=== PATIENT | male | born 1955 | race African-American/Black ===

== ENCOUNTER 2021-07-14 17:57 | Inpatient (IN) | payer MEDICARE, OTHER ==
[~2021-07-14] VITALS: Ht 180.3 cm; Wt 111.4 kg
[~2021-07-14 17:57] MED LIST: AMLO-489 PO; ASPI81CH43 PO; ATOR20TA50 PO; CARV25TA55 PO; CLOP75TA28 PO; DOXA4TAB6 PO; ESLI1TAB4 PO; FURO20TA3 PO; HYDR50TA15 PO; INSLANTI SC; INSU100I25 SC; PANT40T PO
[2021-07-14] MEDS ORDERED: SODIUM CHLORIDE 0.9% 500 ML IVB ONE (18:30)
[2021-07-14 20:32] LABS: Basophils # (auto) 0 10 ^3/uL (0-0.2); Basophils % (auto) 0.4 % (0.0-2.0); Eosinophils # (auto) 0 10 ^3/uL (0-0.8); Eosinophils % (auto) 0.6 % (0.0-7.0); Hematocrit 42.6 % (41.0-53.0); Hemoglobin 14.2 g/dL (13.5-17.5); Lymphocytes # (auto) 0.6 10 ^3/uL (0.4-5.4); Lymphocytes % (auto) 8.4 % (10.0-50.0); Mean Corpuscular Hemoglobin 27.1 pg (28.0-32.0); Mean Corpuscular Hgb Conc. 33.4 g/dL (32.0-36.0); Mean Corpuscular Volume 81.3 fL (80.0-100.0); Monocytes # (auto) 0.5 10 ^3/uL (0-1.3); Monocytes % (auto) 7.7 % (0.0-12.0); Neutrophils # (auto) 5.5 10 ^3/uL (1.6-8.6); Neutrophils % (auto) 82.9 % (37.0-80.0); Nucleated Red Blood Cells % 0.1 %; Red Blood Cells 5.24 10^6/uL (4.5-5.90); White Blood Cell 6.6 10^3/uL (4.4-10.8)
[2021-07-14 20:43] LABS: Albumin 2.2 g/dL (3.4-5.0); BUN/Creatinine Ratio 13.9; Calcium 8.9 mg/dL (8.5-10.1); Magnesium 2.2 mg/dL (1.6-2.6); Potassium 4.1 mmol/L (3.5-5.1)
[2021-07-14 20:45] LABS: Bilirubin, Total 0.7 mg/dL (0.2-1.0); Total Protein 7.9 g/dL (6.4-8.2)
[2021-07-14 20:48] LABS: Lactic Acid w/Reflex 2.5 mmol/L (0.4-2.0)
[2021-07-14] MEDS ORDERED: ACETAMINOPHEN 325 MG TAB PO PRN (22:30)
[2021-07-14] MEDS ORDERED: DOCUSATE SOD 100 MG CAP PO PRN (22:30)
[2021-07-14] MEDS ORDERED: DEXTROSE (50%) 50ML SYRG IV PRN (22:30)
[2021-07-14] MEDS ORDERED: MORPHINE SULFATE 4 MG/ML SYR/VIAL IV PRN (22:30)
[2021-07-14] MEDS ORDERED: ONDANSETRON HCL 4 MG/2 ML VIAL IV PRN (22:30)
[2021-07-14] MEDS ORDERED: hydrALAZINE HCL 20 MG/ML VL IV PRN (22:30)
[2021-07-14] MEDS ORDERED: HYDROcodone-ACET 5/325MG TAB PO PRN (22:30)
[2021-07-14] MEDS: SODIUM CHLORIDE 0.9% 1,000 ML IV SCH (23:17)
[2021-07-15] VITALS (7 sets, daily range): BP systolic 118–161; BP diastolic 63–92
[2021-07-15] MEDS ORDERED: MORPHINE SULFATE INJECTION 2 MG/ML SYRG IV PRN (00:15)
[2021-07-15] MEDS ORDERED: NITROGLYCERIN 0.4 MG SL TAB SL PRN (00:15)
[2021-07-15] MEDS: ACCU-CHEK COMFORT CURVE STRIP VI SCH ×5 (06:35→22:12)
[2021-07-15] MEDS: InsuLIN REG 1unit/0.01ml Soln (100units/ml) SC SCH ×5 (06:36→22:00)
[2021-07-15] MEDS: cefTRIAXone 1GM/50ML D5W 50 ML IV SCH ×2 (09:00→11:30)
[2021-07-15] MEDS: FAMOTIDINE (10MG/ML) 2ML VL IV SCH (12:11)
[2021-07-15] MEDS: ZINC SULFATE 220mg CAP or TAB PO SCH (12:12)
[2021-07-15] MEDS: AZITHROMYCIN 500MG/ 250ML 250 ML IV SCH (12:12)
[2021-07-15] MEDS: ASPirin 81 mg TAB PO SCH (12:12)
[2021-07-15] MEDS: ASCORBIC ACID 500 MG TAB PO SCH ×2 (12:14→22:11)
[2021-07-15] MEDS: MULTIPLE VITAMIN TAB PO SCH (12:17)
[2021-07-15] MEDS: amLODIPine BESYLATE 5 MG TAB PO SCH (12:19)
[2021-07-15] MEDS: SODIUM CHLORIDE 0.9% 1,000 ML IV SCH (14:21)
[2021-07-15] MEDS: ATORVASTATIN 20 MG TAB PO SCH (22:11)
[2021-07-15 22:15] LABS: Basophils # (auto) 0 10 ^3/uL (0-0.2); Basophils % (auto) 0.6 % (0.0-2.0); Eosinophils # (auto) 0.1 10 ^3/uL (0-0.8); Eosinophils % (auto) 1.5 % (0.0-7.0); Hematocrit 37.4 % (41.0-53.0); Hemoglobin 12.5 g/dL (13.5-17.5); Lymphocytes # (auto) 0.7 10 ^3/uL (0.4-5.4); Lymphocytes % (auto) 13.5 % (10.0-50.0); Mean Corpuscular Hemoglobin 27.2 pg (28.0-32.0); Mean Corpuscular Hgb Conc. 33.5 g/dL (32.0-36.0); Mean Corpuscular Volume 81.2 fL (80.0-100.0); Monocytes # (auto) 0.6 10 ^3/uL (0-1.3); Monocytes % (auto) 11.7 % (0.0-12.0); Neutrophils % (auto) 72.7 % (37.0-80.0); Nucleated Red Blood Cells % 0.1 %; Red Cell Distribution Width 14.8 % (11.8-14.3); White Blood Cell 5.5 10^3/uL (4.4-10.8)
[2021-07-15 22:23] LABS: Albumin 1.8 g/dL (3.4-5.0); Calcium 8.3 mg/dL (8.5-10.1); Potassium 3.7 mmol/L (3.5-5.1)
[2021-07-15 22:29] LABS: BUN/Creatinine Ratio 18.4; Bilirubin, Total 0.6 mg/dL (0.2-1.0)
[2021-07-16 05:31] VITALS: BP 132/54
[2021-07-16] MEDS: ACCU-CHEK COMFORT CURVE STRIP VI SCH ×4 (06:39→22:24)
[2021-07-16] MEDS: InsuLIN REG 1unit/0.01ml Soln (100units/ml) SC SCH ×4 (06:42→22:30)
[2021-07-16 09:00] VITALS: BP 131/98
[2021-07-16] MEDS: ASPirin 81 mg TAB PO SCH (10:23)
[2021-07-16] MEDS: ZINC SULFATE 220mg CAP or TAB PO SCH (10:23)
[2021-07-16] MEDS: FAMOTIDINE (10MG/ML) 2ML VL IV SCH (10:23)
[2021-07-16] MEDS: MULTIPLE VITAMIN TAB PO SCH (10:24)
[2021-07-16] MEDS: amLODIPine BESYLATE 5 MG TAB PO SCH (10:25)
[2021-07-16] MEDS: ASCORBIC ACID 500 MG TAB PO SCH ×2 (10:25→22:29)
[2021-07-16] MEDS: AZITHROMYCIN 500MG/ 250ML 250 ML IV SCH (10:31)
[2021-07-16] MEDS: SODIUM CHLORIDE 0.9% 1,000 ML IV SCH (10:31)
[2021-07-16 13:00] VITALS: BP 105/69
[2021-07-16 17:00] VITALS: BP 152/74
[2021-07-16 22:00] VITALS: BP 127/76
[2021-07-16] MEDS: ATORVASTATIN 20 MG TAB PO SCH (22:29)
[2021-07-16 22:42] LABS: Basophils # (auto) 0 10 ^3/uL (0-0.2); Eosinophils # (auto) 0.1 10 ^3/uL (0-0.8); Eosinophils % (auto) 2.1 % (0.0-7.0); Hematocrit 36.9 % (41.0-53.0); Hemoglobin 12.4 g/dL (13.5-17.5); Lymphocytes # (auto) 0.8 10 ^3/uL (0.4-5.4); Lymphocytes % (auto) 16.7 % (10.0-50.0); Mean Corpuscular Hemoglobin 27.1 pg (28.0-32.0); Mean Corpuscular Hgb Conc. 33.6 g/dL (32.0-36.0); Mean Corpuscular Volume 80.5 fL (80.0-100.0); Monocytes # (auto) 0.7 10 ^3/uL (0-1.3); Monocytes % (auto) 15.2 % (0.0-12.0); Neutrophils # (auto) 3.1 10 ^3/uL (1.6-8.6); Nucleated Red Blood Cells % 0.1 %; Red Blood Cells 4.58 10^6/uL (4.5-5.90); White Blood Cell 4.8 10^3/uL (4.4-10.8)
[2021-07-16 23:12] LABS: Potassium 3.6 mmol/L (3.5-5.1)
[2021-07-16 23:16] LABS: BUN/Creatinine Ratio 17.2; Calcium 7.9 mg/dL (8.5-10.1)
[2021-07-17] MEDS: SODIUM CHLORIDE 0.9% 1,000 ML IV SCH ×2 (04:52→17:17)
[2021-07-17] MEDS: ACCU-CHEK COMFORT CURVE STRIP VI SCH ×4 (06:13→22:00)
[2021-07-17] MEDS: InsuLIN REG 1unit/0.01ml Soln (100units/ml) SC SCH ×4 (06:14→23:37)
[2021-07-17 06:15] VITALS: BP 141/92
[2021-07-17] MEDS: cefTRIAXone 1GM/50ML D5W 50 ML IV SCH (08:15)
[2021-07-17 09:03] LABS: BUN/Creatinine Ratio 14.5; Potassium 4.4 mmol/L (3.5-5.1)
[2021-07-17] MEDS: ASPirin 81 mg TAB PO SCH (09:27)
[2021-07-17] MEDS: ZINC SULFATE 220mg CAP or TAB PO SCH (09:27)
[2021-07-17] MEDS: ASCORBIC ACID 500 MG TAB PO SCH ×2 (09:27→22:00)
[2021-07-17] MEDS: MULTIPLE VITAMIN TAB PO SCH (09:27)
[2021-07-17] MEDS: FAMOTIDINE (10MG/ML) 2ML VL IV SCH (09:27)
[2021-07-17] MEDS: amLODIPine BESYLATE 5 MG TAB PO SCH (09:28)
[2021-07-17] MEDS: AZITHROMYCIN 500MG/ 250ML 250 ML IV SCH (09:29)
[2021-07-17 12:26] VITALS: BP 154/95
[2021-07-17 12:29] VITALS: BP 130/89
[2021-07-17 17:00] VITALS: BP 153/78
[2021-07-17 20:00] VITALS: BP 139/79
[2021-07-17] MEDS: ATORVASTATIN 20 MG TAB PO SCH (22:00)
[2021-07-18] MEDS: SODIUM CHLORIDE 0.9% 1,000 ML IV SCH (04:00)
[2021-07-18] MEDS: ACCU-CHEK COMFORT CURVE STRIP VI SCH ×4 (05:43→21:18)
[2021-07-18] MEDS: InsuLIN REG 1unit/0.01ml Soln (100units/ml) SC SCH ×4 (07:02→21:16)
[2021-07-18 08:20] VITALS: BP 171/89
[2021-07-18 09:00] VITALS: BP 171/95
[2021-07-18] MEDS: ZINC SULFATE 220mg CAP or TAB PO SCH (09:53)
[2021-07-18] MEDS: ASPirin 81 mg TAB PO SCH (09:53)
[2021-07-18] MEDS: MULTIPLE VITAMIN TAB PO SCH (09:53)
[2021-07-18] MEDS: cefTRIAXone 1GM/50ML D5W 50 ML IV SCH (09:53)
[2021-07-18] MEDS: ASCORBIC ACID 500 MG TAB PO SCH ×2 (09:54→21:18)
[2021-07-18] MEDS: amLODIPine BESYLATE 5 MG TAB PO SCH (09:54)
[2021-07-18 10:17] LABS: Calcium 8.2 mg/dL (8.5-10.1); Potassium 4.2 mmol/L (3.5-5.1)
[2021-07-18 10:21] LABS: BUN/Creatinine Ratio 11.3
[2021-07-18] MEDS: AZITHROMYCIN 500MG/ 250ML 250 ML IV SCH (10:30)
[2021-07-18 13:00] VITALS: BP 151/90
[2021-07-18 17:41] VITALS: BP 138/81
[2021-07-18] MEDS: ATORVASTATIN 20 MG TAB PO SCH (21:18)
[2021-07-18 21:27] VITALS: BP 155/89
[2021-07-18 22:15] VITALS: BP 155/89
== END 2021-07-18 22:30 | DRG 70 ==
LOC: EDBD 17:57 → ER 17:57 → WEST WING 07-15 00:04
PROVIDERS: ADMIT Nurse Practitioner Family; ATTEND Internal Medicine Geriatric Medicine
DX: G93.41 Metabolic encephalopathy (principal); J18.9 Pneumonia, unspecified organism; N17.9 Acute kidney failure, unspecified; I50.42 Chronic combined systolic (congestive) and diastolic (congestive) heart failure; I13.0 Hypertensive heart and chronic kidney disease with heart failure and stage 1 through stage 4 chronic kidney disease, or unspecified chronic kidney disease; E88.09 Other disorders of plasma-protein metabolism, not elsewhere classified; E11.65 Type 2 diabetes mellitus with hyperglycemia; N18.9 Chronic kidney disease, unspecified; I25.10 Atherosclerotic heart disease of native coronary artery without angina pectoris; Z86.73 Personal history of transient ischemic attack (TIA), and cerebral infarction without residual deficits; E78.5 Hyperlipidemia, unspecified; F17.210 Nicotine dependence, cigarettes, uncomplicated; Z20.822 Contact with and (suspected) exposure to COVID-19; G40.909 Epilepsy, unspecified, not intractable, without status epilepticus; Z59.00 Homelessness unspecified; Z83.3 Family history of diabetes mellitus; Z79.82 Long term (current) use of aspirin; Z79.899 Other long term (current) drug therapy; Z90.49 Acquired absence of other specified parts of digestive tract
CPT/HCPCS: 36415; 70450; 71045; 80048; 80053; 80061; 80320; 82962; 83036; 83605; 83735; 85025; 87040; 87081; 87426; 93306; 93886; 96361; 96374; 97110; 97116; 97163; 97530; G0378; J0696; J1815; J3490

== ENCOUNTER 2023-10-10 14:14 | Inpatient (IN) | payer BC ==
[~2023-10-10] VITALS: Ht 190.5 cm; Wt 114.8 kg
[~2023-10-10 14:14] MED LIST changes: -AMLO-489 PO; +AMLO1TAB22 PO; -DOXA4TAB6 PO; +DOXA4TAB83 PO; +HYDR-4297 PO; -HYDR50TA15 PO
[2023-10-10] MEDS: SODIUM CHLORIDE 0.9% 1,000 ML IV ONE (15:30)
[2023-10-10 19:42] LABS: Basophils # (auto) 0.1 10 ^3/uL (0-0.2); Basophils % (auto) 0.9 % (0.0-2.0); Eosinophils # (auto) 0.4 10 ^3/uL (0-0.8); Eosinophils % (auto) 4.5 % (0.0-7.0); Hematocrit 39.6 % (41.0-53.0); Hemoglobin 12.9 g/dL (13.5-17.5); Lymphocytes % (auto) 25.3 % (10.0-50.0); Mean Corpuscular Hemoglobin 26.8 pg (28.0-32.0); Mean Corpuscular Hgb Conc. 32.6 g/dL (32.0-36.0); Mean Corpuscular Volume 82.1 fL (80.0-100.0); Monocytes # (auto) 0.5 10 ^3/uL (0-1.3); Monocytes % (auto) 6.6 % (0.0-12.0); Neutrophils % (auto) 62.7 % (37.0-80.0); Nucleated Red Blood Cells % 0.1 %; Red Blood Cells 4.82 10^6/uL (4.5-5.90); Red Cell Distribution Width 16.2 % (11.8-14.3)
[2023-10-10 19:57] LABS: Alanine Aminotransferase 31 U/L (7-40); Albumin 4.5 g/dL (3.2-4.8); Alkaline Phosphatase 125 U/L (46-116); Anion Gap 11 (5-15); Aspartate Aminotransferase 17 U/L (13-40); BUN/Creatinine Ratio 10.7 (10.0-20.0); Bilirubin, Direct 0.5 mg/dL (<0.3); Blood Urea Nitrogen 22 mg/dL (9-23); Calcium 9.6 mg/dL (8.5-10.1); Carbon Dioxide 19 mmol/L (20-30); Chloride 107 mmol/L (98-107); Glucose 165 mg/dL (74-106); Potassium 3.8 mmol/L (3.5-5.1); Sodium 137 mmol/L (136-145)
[2023-10-10 19:58] LABS: Bilirubin, Total 1.2 mg/dL (0.2-1.0); Total Protein 7.7 g/dL (5.7-8.2)
[2023-10-10 20:12] LABS: Lipase 34 U/L (12-53); Magnesium 1.7 mg/dL (1.6-2.6)
[2023-10-10] MEDS ORDERED: ONDANSETRON HCL 4 MG/2 ML VIAL IV PRN (20:15)
[2023-10-10] MEDS: SODIUM CHLORIDE 0.9% 1,000 ML IV SCH (20:15)
[2023-10-10] MEDS ORDERED: ACETAMINOPHEN 325 MG TAB PO PRN (20:15)
[2023-10-11] VITALS (8 sets, daily range): BP systolic 126–163; BP diastolic 84–96; PULSE 72–80; RESP 16–20; TEMP 97.7–98.9; O2SAT 92–98
[2023-10-11] MEDS: DICYCLOMINE HCL (10MG/ML) 2 ML AMPULE IM ONE (02:58)
[2023-10-11] MEDS: PANTOPRAZOLE 40 MG/10 ML VIAL INJ IV SCH (05:31)
[2023-10-11] MEDS ORDERED: CLOP75TA70 PO (09:59)
[2023-10-11] MEDS ORDERED: FURO40TA4 PO (09:59)
[2023-10-11] MEDS ORDERED: AMLO1TAB23 PO (09:59)
[2023-10-11] MEDS ORDERED: CARV6.2551 PO (10:00)
[2023-10-11] MEDS ORDERED: INSU100I54 SC (10:00)
[2023-10-11] MEDS ORDERED: ACET250T20 PO (10:00)
[2023-10-11] MEDS ORDERED: ATOR-47 PO (10:00)
[2023-10-11] MEDS ORDERED: INSU1INJ19 SC (10:00)
[2023-10-11] MEDS ORDERED: BRIM0.2S17 EACHEYE (10:01)
[2023-10-11] MEDS ORDERED: DORZ1SOL6 EACHEYE (10:01)
[2023-10-11] MEDS ORDERED: DEXTROSE (50%) 50ML SYRG IV PRN (11:45)
[2023-10-11] MEDS: InsuLIN REG 1unit/0.01ml Soln (100units/ml) SC SCH (12:40)
[2023-10-11] MEDS: ACCU-CHEK COMFORT CURVE STRIP VI SCH (12:43)
[2023-10-11] MEDS: CLOPIDOGREL BISULFATE 75 MG TAB PO ONE (13:10)
[2023-10-11] MEDS: ASPirin 81 mg TAB PO ONE (13:10)
[2023-10-11] MEDS: amLODIPine BESYLATE 5 MG TAB PO ONE (13:11)
[2023-10-11] MEDS: FUROSEMIDE 40 MG TAB PO ONE (13:11)
[2023-10-11 15:42] LABS: Urine Bacteria FEW /hpf (None Seen); Urine Blood Negative /uL (Negative); Urine Clarity Clear (Clear); Urine Color Yellow (Yellow); Urine Protein, UAD TRACE (Negative); Urine Specific Gravity 1.014 (1.001-1.035); Urine Urobilinogen Normal (Negative); Urine WBC 1 /hpf (0 - 3); Urine pH 5.5 (5.0-8.0)
[2023-10-11] MEDS ORDERED: InsuLIN REG 1unit/0.01ml Soln (100units/ml) SC SCH (17:00)
[2023-10-11] MEDS ORDERED: CARVEDILOL 3.125 MG TAB PO SCH (22:00)
[2023-10-11] MEDS: acetaZOLAMIDE 250 MG TAB PO SCH (22:16)
[2023-10-11] MEDS: ATORVASTATIN 20 MG TAB PO SCH (22:17)
[2023-10-11] MEDS: CARVEDILOL 3.125 MG TAB PO SCH (22:17)
[2023-10-12] VITALS (9 sets, daily range): BP systolic 119–157; BP diastolic 70–90; PULSE 70–82; RESP 17–22; TEMP 97.6–98.2; O2SAT 97–100
[2023-10-12] MEDS: ASPirin 81 mg TAB PO SCH (09:57)
[2023-10-12] MEDS: amLODIPine BESYLATE 5 MG TAB PO SCH (09:58)
[2023-10-12] MEDS: CLOPIDOGREL BISULFATE 75 MG TAB PO SCH (09:58)
[2023-10-12] MEDS: FUROSEMIDE 40 MG TAB PO SCH (09:59)
[2023-10-12 13:57] LABS: Chloride 113 mmol/L (98-107); Potassium 3.9 mmol/L (3.5-5.1); Sodium 139 mmol/L (136-145)
[2023-10-12 13:58] LABS: Anion Gap 7 (5-15); Calcium 8.9 mg/dL (8.5-10.1); Carbon Dioxide 19 mmol/L (20-30)
[2023-10-12 14:03] LABS: BUN/Creatinine Ratio 11.5 (10.0-20.0); Blood Urea Nitrogen 15 mg/dL (9-23); Glucose 150 mg/dL (74-106)
[2023-10-12] MEDS: INSULIN LANTUS (GLARGINE) 1 /0.01ml (100units/ml) SC SCH (14:08)
[2023-10-13] VITALS (7 sets, daily range): BP systolic 120–149; BP diastolic 57–80; PULSE 66–75; RESP 17–20; TEMP 96.8–98.7; O2SAT 92–98
[2023-10-13 14:41] LABS: Basophils # (auto) 0.1 10 ^3/uL (0-0.2); Eosinophils # (auto) 0.3 10 ^3/uL (0-0.8); Hemoglobin 12.8 g/dL (13.5-17.5); Lymphocytes # (auto) 1.5 10 ^3/uL (0.4-5.4); Monocytes # (auto) 0.4 10 ^3/uL (0-1.3); Nucleated Red Blood Cells % 0.1 %; White Blood Cell 5.6 10^3/uL (4.4-10.8)
[2023-10-13 14:42] LABS: Chloride 111 mmol/L (98-107); Potassium 3.7 mmol/L (3.5-5.1); Sodium 140 mmol/L (136-145)
[2023-10-13 14:43] LABS: Anion Gap 10 (5-15); Basophils % (auto) 1.8 % (0.0-2.0); Calcium 9.1 mg/dL (8.5-10.1); Carbon Dioxide 19 mmol/L (20-30); Eosinophils % (auto) 5.9 % (0.0-7.0); Hematocrit 39.3 % (41.0-53.0); Lymphocytes % (auto) 26.6 % (10.0-50.0); Mean Corpuscular Hemoglobin 27.1 pg (28.0-32.0); Mean Corpuscular Hgb Conc. 32.7 g/dL (32.0-36.0); Mean Corpuscular Volume 82.8 fL (80.0-100.0); Monocytes % (auto) 7.5 % (0.0-12.0); Neutrophils # (auto) 3.3 10 ^3/uL (1.6-8.6); Neutrophils % (auto) 58.2 % (37.0-80.0); Red Blood Cells 4.75 10^6/uL (4.5-5.90); Red Cell Distribution Width 16.6 % (11.8-14.3)
[2023-10-13 14:48] LABS: BUN/Creatinine Ratio 11.9 (10.0-20.0); Blood Urea Nitrogen 16 mg/dL (9-23); Glucose 139 mg/dL (74-106)
[2023-10-14] VITALS (7 sets, daily range): BP systolic 123–146; BP diastolic 56–81; PULSE 64–78; RESP 17–20; TEMP 98–98.6; O2SAT 96–98
[2023-10-15] VITALS (7 sets, daily range): BP systolic 117–129; BP diastolic 65–73; PULSE 63–76; RESP 16–18; TEMP 97.8–98.4; O2SAT 95–100
[2023-10-15] MEDS: SODIUM CHLORIDE 0.9% 1,000 ML IV SCH ×2 (16:02→17:10)
[2023-10-15] MEDS ORDERED: SODIUM CHLORIDE 0.9% 1,000 ML IV SCH (16:15)
[2023-10-16] VITALS (11 sets, daily range): BP systolic 102–151; BP diastolic 43–85; PULSE 62–91; RESP 12–22; TEMP 81–98.3; O2SAT 94–99
[2023-10-16] LABS: Urine Bacteria FEW /hpf (None Seen); Urine Blood Negative /uL (Negative); Urine Clarity Clear (Clear); Urine Color Yellow (Yellow); Urine Mucus FEW (None Seen); Urine Protein, UAD Negative (Negative); Urine Specific Gravity 1.013 (1.001-1.035); Urine Urobilinogen Normal (Negative); Urine WBC <1 /hpf (0 - 3); Urine pH 5.5 (5.0-8.0)
[2023-10-16 05:52] LABS: Basophils # (auto) 0.1 10 ^3/uL (0-0.2); Eosinophils # (auto) 0.4 10 ^3/uL (0-0.8); Monocytes # (auto) 0.6 10 ^3/uL (0-1.3)
[2023-10-16 05:56] LABS: Basophils % (auto) 1.8 % (0.0-2.0); Eosinophils % (auto) 6.5 % (0.0-7.0); Hematocrit 38.5 % (41.0-53.0); Hemoglobin 12.7 g/dL (13.5-17.5); Lymphocytes # (auto) 1.8 10 ^3/uL (0.4-5.4); Lymphocytes % (auto) 30.7 % (10.0-50.0); Mean Corpuscular Hemoglobin 26.8 pg (28.0-32.0); Mean Corpuscular Hgb Conc. 32.9 g/dL (32.0-36.0); Mean Corpuscular Volume 81.6 fL (80.0-100.0); Monocytes % (auto) 9.8 % (0.0-12.0); Neutrophils % (auto) 51.2 % (37.0-80.0); Nucleated Red Blood Cells % 0.1 %; Red Blood Cells 4.72 10^6/uL (4.5-5.90); Red Cell Distribution Width 15.9 % (11.8-14.3); White Blood Cell 5.8 10^3/uL (4.4-10.8)
[2023-10-16 06:03] LABS: Chloride 110 mmol/L (98-107); Potassium 3.3 mmol/L (3.5-5.1); Sodium 140 mmol/L (136-145)
[2023-10-16 06:04] LABS: Anion Gap 10 (5-15); Carbon Dioxide 20 mmol/L (20-30)
[2023-10-16 06:05] LABS: Calcium 9.4 mg/dL (8.5-10.1)
[2023-10-16 06:08] LABS: INR 1.15 (0.9-1.15)
[2023-10-16 06:09] LABS: Glucose 89 mg/dL (74-106)
[2023-10-16 06:10] LABS: BUN/Creatinine Ratio 11.3 (10.0-20.0); Blood Urea Nitrogen 16 mg/dL (9-23)
[2023-10-16] MEDS ORDERED: ACETYLCYSTEINE ORAL for CIN 20%(200MG/ML) 4ML PO ONE (09:15)
[2023-10-16] MEDS: IODIXANOL 320MG/ML 100ML BTL IV ONE ×2 (12:58→13:32)
[2023-10-16] MEDS: LIDOCAINE 2%HCL (LOCAL ANESTH.) INJ 20ML MDV ONE (12:58)
[2023-10-16] MEDS: fentaNYL CITRATE 100 MCG/2 ML VL ONE (13:05)
[2023-10-16] MEDS: SODIUM CHL 0.9% 0 ML ONE (13:05)
[2023-10-16] MEDS: ANGIOMAX 250 MG VIAL IV ONE (13:05)
[2023-10-16] MEDS: VERAPAMIL 2.5MG/ML INJ 2ML VIAL IV ONE (13:05)
[2023-10-16] MEDS: MIDAZOLAM HCL 2MG/2ML 2ml VIAL (1mg/ml) ONE (13:05)
[2023-10-16] MEDS: HEPARIN SODIUM (PORCINE) 5000 UNITS/ML 1ML VIAL ONE ×2 (13:06→14:08)
[2023-10-16] MEDS: HEPARIN 1,000 UNITS/ml 1ML VIAL ONE (13:39)
[2023-10-16] MEDS ORDERED: ACETYLCYSTEINE ORAL for CIN 20%(200MG/ML) 4ML PO SCH (22:00)
[2023-10-17] VITALS (8 sets, daily range): BP systolic 104–132; BP diastolic 61–73; PULSE 65–85; RESP 16–20; TEMP 97.4–98.4; O2SAT 98–100
[2023-10-17] MEDS: ACETYLCYSTEINE ORAL for CIN 20%(200MG/ML) 4ML PO SCH (09:10)
[2023-10-17 09:45] LABS: Basophils # (auto) 0 10 ^3/uL (0-0.2); Eosinophils # (auto) 0.4 10 ^3/uL (0-0.8); Hemoglobin 12.2 g/dL (13.5-17.5); Lymphocytes # (auto) 1.4 10 ^3/uL (0.4-5.4); Monocytes # (auto) 0.6 10 ^3/uL (0-1.3); Neutrophils # (auto) 4.1 10 ^3/uL (1.6-8.6); Nucleated Red Blood Cells % 0.1 %; White Blood Cell 6.5 10^3/uL (4.4-10.8)
[2023-10-17 09:48] LABS: Basophils % (auto) 0.3 % (0.0-2.0); Hematocrit 37.1 % (41.0-53.0); Lymphocytes % (auto) 22.2 % (10.0-50.0); Mean Corpuscular Hemoglobin 26.7 pg (28.0-32.0); Mean Corpuscular Hgb Conc. 32.7 g/dL (32.0-36.0); Mean Corpuscular Volume 81.7 fL (80.0-100.0); Monocytes % (auto) 8.8 % (0.0-12.0); Neutrophils % (auto) 62.7 % (37.0-80.0); Red Blood Cells 4.55 10^6/uL (4.5-5.90); Red Cell Distribution Width 16.2 % (11.8-14.3)
[2023-10-17 09:59] LABS: Chloride 110 mmol/L (98-107); Sodium 138 mmol/L (136-145)
[2023-10-17 10:00] LABS: Anion Gap 8 (5-15); Carbon Dioxide 20 mmol/L (20-30)
[2023-10-17 10:01] LABS: Calcium 9.2 mg/dL (8.5-10.1)
[2023-10-17 10:05] LABS: BUN/Creatinine Ratio 11.3 (10.0-20.0); Blood Urea Nitrogen 16 mg/dL (9-23)
[2023-10-17 10:10] LABS: Glucose 191 mg/dL (74-106)
[2023-10-17] MEDS: MELATONIN 5 MG TAB PO PRN (22:00)
[2023-10-18 05:00] VITALS: BP 118/61; PULSE 72; RESP 17; TEMP 98; O2SAT 100
[2023-10-18 08:00] VITALS: PULSE 64
[2023-10-18 09:00] VITALS: BP 127/68; PULSE 74; RESP 20; TEMP 96.8; O2SAT 92
[2023-10-18 11:02] VITALS: BP 125/65; PULSE 65; TEMP 36
== END 2023-10-18 13:26 | disposition home health service (06) | DRG 280 ==
LOC: ER 14:14 → OVERFLOW 20:19 → CENTRAL 10-11 09:20 → TELE-CENTR 10-14 18:57 → TELE-EAST 10-14 20:31
PROVIDERS: ADMIT Nurse Practitioner Family; ATTEND Internal Medicine
PROC: B2111ZZ Fluoroscopy of Multiple Coronary Arteries using Low Osmolar Contrast (ICD-10-PCS; principal; 2023-10-16)
PROC: 4A023N7 Measurement of Cardiac Sampling and Pressure, Left Heart, Percutaneous Approach (ICD-10-PCS; 2023-10-16)
PROC: 02JA3ZZ Inspection of Heart, Percutaneous Approach (ICD-10-PCS; 2023-10-16)
DX: I21.4 Non-ST elevation (NSTEMI) myocardial infarction (principal); I50.41 Acute combined systolic (congestive) and diastolic (congestive) heart failure; N17.0 Acute kidney failure with tubular necrosis; I13.0 Hypertensive heart and chronic kidney disease with heart failure and stage 1 through stage 4 chronic kidney disease, or unspecified chronic kidney disease; Z59.00 Homelessness unspecified; I69.354 Hemiplegia and hemiparesis following cerebral infarction affecting left non-dominant side; I25.10 Atherosclerotic heart disease of native coronary artery without angina pectoris; E78.5 Hyperlipidemia, unspecified; E86.0 Dehydration; E11.22 Type 2 diabetes mellitus with diabetic chronic kidney disease; E66.9 Obesity, unspecified; G40.909 Epilepsy, unspecified, not intractable, without status epilepticus; K57.30 Diverticulosis of large intestine without perforation or abscess without bleeding; N18.9 Chronic kidney disease, unspecified; K52.9 Noninfective gastroenteritis and colitis, unspecified; N28.1 Cyst of kidney, acquired; Z79.82 Long term (current) use of aspirin; Z79.899 Other long term (current) drug therapy; Z79.4 Long term (current) use of insulin; Z90.49 Acquired absence of other specified parts of digestive tract; Z95.5 Presence of coronary angioplasty implant and graft; Z83.3 Family history of diabetes mellitus; Z68.31 Body mass index [BMI] 31.0-31.9, adult
CPT/HCPCS: 36415; 71045; 74176; 80048; 80076; 81001; 82270; 82962; 83036; 83690; 83735; 84484; 85025; 85048; 85610; 85730; 86850; 86900; 86901; 87045; 87177; 87427; 87493; 93005; 93306; 93458; 97110; 97116; 97163; 97530; 99152; C9113; G0378; J1815; J2250; Q9967

== ENCOUNTER 2024-04-16 17:45 | Inpatient (IN) | payer BC ==
[~2024-04-16] VITALS: Ht 190.5 cm; Wt 113.5 kg
[~2024-04-16 17:45] MED LIST changes: +ACET250T20 PO; -AMLO1TAB22 PO; +AMLO1TAB23 PO; +ATOR-47 PO; -ATOR20TA50 PO; +BRIM0.2S17 EACHEYE; -CARV25TA55 PO; +CARV6.2551 PO; -CLOP75TA28 PO; +CLOP75TA70 PO; +DORZ1SOL6 EACHEYE; +FURO1TAB77 PO; -FURO20TA3 PO; +FURO40TA4 PO; -HYDR-4297 PO; +HYDR50TA47 PO; -INSU100I25 SC; +INSU100I54 SC; +LOPE2TAB99 PO
[2024-04-16 18:10] VITALS: PULSE 82; RESP 20; O2SAT 95
[2024-04-16 19:14] LABS: Basophils # (auto) 0.1 10 ^3/uL (0-0.2); Monocytes # (auto) 0.5 10 ^3/uL (0-1.3)
[2024-04-16 19:17] LABS: Eosinophils # (auto) 0.3 10 ^3/uL (0-0.8); Eosinophils % (auto) 3.3 % (0.0-7.0); Hematocrit 38.5 % (41.0-53.0); Hemoglobin 12.9 g/dL (13.5-17.5); Lymphocytes # (auto) 1.2 10 ^3/uL (0.4-5.4); Lymphocytes % (auto) 16.5 % (10.0-50.0); Mean Corpuscular Hemoglobin 27.3 pg (28.0-32.0); Mean Corpuscular Hgb Conc. 33.5 g/dL (32.0-36.0); Mean Corpuscular Volume 81.4 fL (80.0-100.0); Monocytes % (auto) 6.4 % (0.0-12.0); Neutrophils # (auto) 5.5 10 ^3/uL (1.6-8.6); Neutrophils % (auto) 72.8 % (37.0-80.0); Nucleated Red Blood Cells % 0.1 %; Platelet Count (auto) 222 10^3/uL (140-450); Red Blood Cells 4.74 10^6/uL (4.5-5.90); Red Cell Distribution Width 15.6 % (11.8-14.3); White Blood Cell 7.5 10^3/uL (4.4-10.8)
[2024-04-16] MEDS: AZITHROMYCIN 500MG/ 250ML 250 ML IV ONE (19:30)
[2024-04-16] MEDS: cefTRIAXone 1GM/50ML D5W 50 ML IV ONE (19:30)
[2024-04-16 19:32] LABS: INR 1.15 (0.9-1.15); Partial Thromboplastin Time 30.9 SEC (24.5-34.5); Prothrombin Time 12.1 sec (9.3-11.8)
[2024-04-16 19:39] LABS: Alanine Aminotransferase 20 U/L (7-40); Albumin 3.9 g/dL (3.2-4.8); Alkaline Phosphatase 129 U/L (46-116); Anion Gap 10 (5-15); Aspartate Aminotransferase 14 U/L (13-40); Bilirubin, Total 1.5 mg/dL (0.2-1.0); Blood Urea Nitrogen 24 mg/dL (9-23); Calcium 9.5 mg/dL (8.7-10.4); Carbon Dioxide 18 mmol/L (20-30); Chloride 109 mmol/L (98-107); Glucose 202 mg/dL (74-106); Potassium 4.4 mmol/L (3.5-5.1); Sodium 137 mmol/L (136-145); Total Protein 7.4 g/dL (5.7-8.2)
[2024-04-16] MEDS: ASPirin-EC 81 mg tab PO ONE (20:24)
[2024-04-16 20:36] VITALS: PULSE 84; RESP 19; O2SAT 95
[2024-04-16] MEDS: InsuLIN REG 1unit/0.01ml Soln (100units/ml) IV ONE (20:45)
[2024-04-16 22:18] LABS: Urine Bacteria FEW /hpf (None Seen); Urine Blood Negative /uL (Negative); Urine Clarity Clear (Clear); Urine Color Yellow (Yellow); Urine Mucus FEW (None Seen); Urine Protein, UAD 1+ (Negative); Urine Specific Gravity 1.021 (1.001-1.035); Urine Urobilinogen 3 mg/dL (Negative); Urine WBC 1 /hpf (0 - 3); Urine pH 5.5 (5.0-9.0)
[2024-04-16] MEDS ORDERED: DEXTROSE (50%) 50ML SYRG IV PRN (22:30)
[2024-04-16] MEDS ORDERED: NITROGLYCERIN 0.4 MG SL TAB SL PRN (22:30)
[2024-04-16] MEDS ORDERED: hydrALAZINE HCL 20 MG/ML VL IV PRN (22:30)
[2024-04-16] MEDS ORDERED: ONDANSETRON HCL 4 MG/2 ML VIAL IV PRN (22:30)
[2024-04-16] MEDS ORDERED: MORPHINE SULFATE INJ 2 MG/ml SYRG IV PRN (22:30)
[2024-04-16] MEDS ORDERED: DOCUSATE SOD 100 MG CAP PO PRN (22:30)
[2024-04-17] VITALS (8 sets, daily range): BP systolic 110–155; BP diastolic 64–85; PULSE 67–90; RESP 15–22; TEMP 97.9–98.5; O2SAT 92–98
[2024-04-17] MEDS: SODIUM CHLOR 0.9% PF (SALINE LOCK) 10ML VIAL/SYR IV SCH (06:27)
[2024-04-17] MEDS: ACCU-CHEK COMFORT CURVE STRIP VI SCH (06:27)
[2024-04-17] MEDS: InsuLIN REG 1unit/0.01ml Soln (100units/ml) SC SCH ×2 (06:27→21:28)
[2024-04-17] MEDS: DORZOLAMIDE HCL 2% OPTH(EYE) SOL 10ML EACHEYE SCH (10:00)
[2024-04-17] MEDS: ASPirin 81 mg TAB PO SCH (10:01)
[2024-04-17] MEDS: amLODIPine BESYLATE 5 MG TAB PO SCH (10:02)
[2024-04-17] MEDS: ENOXAPARIN SOD 40 MG/0.4 ML SYRINGE SC SCH (10:03)
[2024-04-17] MEDS: CARVEDILOL 3.125 MG TAB PO SCH (10:03)
[2024-04-17 15:12] LABS: Basophils # (auto) 0.1 10 ^3/uL (0-0.2); Basophils % (auto) 1.7 % (0.0-2.0); Eosinophils # (auto) 0.3 10 ^3/uL (0-0.8); Eosinophils % (auto) 4.6 % (0.0-7.0); Hematocrit 37.4 % (41.0-53.0); Hemoglobin 12.3 g/dL (13.5-17.5); Lymphocytes % (auto) 15.5 % (10.0-50.0); Mean Corpuscular Hemoglobin 27.1 pg (28.0-32.0); Mean Corpuscular Hgb Conc. 32.9 g/dL (32.0-36.0); Mean Corpuscular Volume 82.4 fL (80.0-100.0); Monocytes # (auto) 0.4 10 ^3/uL (0-1.3); Monocytes % (auto) 6.3 % (0.0-12.0); Neutrophils # (auto) 4.6 10 ^3/uL (1.6-8.6); Neutrophils % (auto) 71.9 % (37.0-80.0); Nucleated Red Blood Cells % 0.2 %; Platelet Count (auto) 198 10^3/uL (140-450); Red Blood Cells 4.54 10^6/uL (4.5-5.90); Red Cell Distribution Width 15.8 % (11.8-14.3); White Blood Cell 6.3 10^3/uL (4.4-10.8)
[2024-04-17 15:35] LABS: Alanine Aminotransferase 15 U/L (7-40); Albumin 3.6 g/dL (3.2-4.8); Alkaline Phosphatase 120 U/L (46-116); Anion Gap 6 (5-15); Aspartate Aminotransferase 11 U/L (13-40); BUN/Creatinine Ratio 10.1 (10.0-20.0); Blood Urea Nitrogen 15 mg/dL (9-23); Calcium 9.3 mg/dL (8.7-10.4); Carbon Dioxide 18 mmol/L (20-30); Chloride 111 mmol/L (98-107); Glucose 211 mg/dL (74-106); Magnesium 1.8 mg/dL (1.6-2.6); Potassium 3.8 mmol/L (3.5-5.1); Sodium 135 mmol/L (136-145)
[2024-04-17 15:36] LABS: Bilirubin, Total 1.1 mg/dL (0.2-1.0); Total Protein 7.1 g/dL (5.7-8.2)
[2024-04-17 17:09] LABS: COVID19 ANTIGEN SOFIA FIA NEGATIVE (NEGATIVE); Rapid Influenza A Negative (Negative); Rapid Influenza B Negative (Negative)
[2024-04-17] MEDS: AZITHROMYCIN 500MG/ 250ML 250 ML IV SCH (20:00)
[2024-04-17] MEDS ORDERED: cefTRIAXone 1GM/50ML D5W 50 ML IV SCH (20:00)
[2024-04-17] MEDS: ATORVASTATIN 20 MG TAB PO SCH (21:27)
[2024-04-17] MEDS ORDERED: LOSA-535 PO (22:23)
[2024-04-17] MEDS: cefTRIAXone 1GM/50ML D5W 50 ML IV SCH (23:26)
[2024-04-18] VITALS (7 sets, daily range): BP systolic 115–142; BP diastolic 65–83; PULSE 62–83; RESP 18–20; TEMP 98–98.9; O2SAT 95–97
[2024-04-18 06:43] LABS: Basophils # (auto) 0.1 10 ^3/uL (0-0.2); Basophils % (auto) 0.9 % (0.0-2.0); Eosinophils # (auto) 0.4 10 ^3/uL (0-0.8); Eosinophils % (auto) 5.6 % (0.0-7.0); Hematocrit 36.9 % (41.0-53.0); Hemoglobin 12.4 g/dL (13.5-17.5); Lymphocytes # (auto) 1.8 10 ^3/uL (0.4-5.4); Lymphocytes % (auto) 24.9 % (10.0-50.0); Mean Corpuscular Hemoglobin 27.5 pg (28.0-32.0); Mean Corpuscular Hgb Conc. 33.6 g/dL (32.0-36.0); Mean Corpuscular Volume 81.6 fL (80.0-100.0); Monocytes # (auto) 0.6 10 ^3/uL (0-1.3); Monocytes % (auto) 8.5 % (0.0-12.0); Neutrophils # (auto) 4.3 10 ^3/uL (1.6-8.6); Neutrophils % (auto) 60.1 % (37.0-80.0); Nucleated Red Blood Cells % 0.1 %; Platelet Count (auto) 195 10^3/uL (140-450); Red Blood Cells 4.53 10^6/uL (4.5-5.90); Red Cell Distribution Width 15.5 % (11.8-14.3); White Blood Cell 7.2 10^3/uL (4.4-10.8)
[2024-04-18 07:02] LABS: Alanine Aminotransferase 18 U/L (7-40); Albumin 3.5 g/dL (3.2-4.8); Alkaline Phosphatase 111 U/L (46-116); Anion Gap 9 (5-15); BUN/Creatinine Ratio 13.4 (10.0-20.0); Blood Urea Nitrogen 20 mg/dL (9-23); Calcium 9.3 mg/dL (8.7-10.4); Carbon Dioxide 17 mmol/L (20-30); Chloride 111 mmol/L (98-107); Glucose 94 mg/dL (74-106); Potassium 3.9 mmol/L (3.5-5.1); Sodium 137 mmol/L (136-145)
[2024-04-18 07:03] LABS: Aspartate Aminotransferase 12 U/L (13-40)
[2024-04-18] MEDS: DOXYCYCLINE 100MG/250ML 250 ML IV SCH (15:02)
[2024-04-19] VITALS (8 sets, daily range): BP systolic 114–148; BP diastolic 69–84; PULSE 69–88; RESP 17–20; TEMP 98.1–98.8; O2SAT 95–98
[2024-04-19 07:29] LABS: Basophils # (auto) 0.1 10 ^3/uL (0-0.2); Basophils % (auto) 0.9 % (0.0-2.0); Eosinophils # (auto) 0.4 10 ^3/uL (0-0.8); Eosinophils % (auto) 5.6 % (0.0-7.0); Hematocrit 34.7 % (41.0-53.0); Hemoglobin 11.9 g/dL (13.5-17.5); Lymphocytes # (auto) 1.7 10 ^3/uL (0.4-5.4); Lymphocytes % (auto) 25.7 % (10.0-50.0); Mean Corpuscular Hemoglobin 27.6 pg (28.0-32.0); Mean Corpuscular Hgb Conc. 34.4 g/dL (32.0-36.0); Mean Corpuscular Volume 80.5 fL (80.0-100.0); Monocytes # (auto) 0.5 10 ^3/uL (0-1.3); Monocytes % (auto) 7.3 % (0.0-12.0); Neutrophils % (auto) 60.5 % (37.0-80.0); Nucleated Red Blood Cells % 0.2 %; Platelet Count (auto) 202 10^3/uL (140-450); Red Blood Cells 4.32 10^6/uL (4.5-5.90); Red Cell Distribution Width 15.5 % (11.8-14.3); White Blood Cell 6.7 10^3/uL (4.4-10.8)
[2024-04-19 07:48] LABS: Alanine Aminotransferase 12 U/L (7-40); Albumin 3.7 g/dL (3.2-4.8); Alkaline Phosphatase 113 U/L (46-116); Anion Gap 8 (5-15); BUN/Creatinine Ratio 14.2 (10.0-20.0); Blood Urea Nitrogen 20 mg/dL (9-23); Calcium 8.9 mg/dL (8.7-10.4); Carbon Dioxide 18 mmol/L (20-30); Chloride 112 mmol/L (98-107); Glucose 122 mg/dL (74-106); Magnesium 1.7 mg/dL (1.6-2.6); Potassium 3.6 mmol/L (3.5-5.1); Sodium 138 mmol/L (136-145)
[2024-04-19 07:49] LABS: Aspartate Aminotransferase 12 U/L (13-40); Bilirubin, Total 0.7 mg/dL (0.2-1.0); Total Protein 6.8 g/dL (5.7-8.2)
[2024-04-20] VITALS (10 sets, daily range): BP systolic 130–150; BP diastolic 68–86; PULSE 72–90; RESP 16–20; TEMP 97.8–98.4; O2SAT 92–96
[2024-04-20 05:50] LABS: Basophils # (auto) 0.1 10 ^3/uL (0-0.2); Basophils % (auto) 1.3 % (0.0-2.0); Eosinophils # (auto) 0.5 10 ^3/uL (0-0.8); Eosinophils % (auto) 7.2 % (0.0-7.0); Hematocrit 34.2 % (41.0-53.0); Hemoglobin 11.7 g/dL (13.5-17.5); Lymphocytes # (auto) 1.9 10 ^3/uL (0.4-5.4); Lymphocytes % (auto) 29.1 % (10.0-50.0); Mean Corpuscular Hemoglobin 27.8 pg (28.0-32.0); Mean Corpuscular Hgb Conc. 34.1 g/dL (32.0-36.0); Mean Corpuscular Volume 81.4 fL (80.0-100.0); Monocytes # (auto) 0.6 10 ^3/uL (0-1.3); Monocytes % (auto) 9.2 % (0.0-12.0); Neutrophils # (auto) 3.5 10 ^3/uL (1.6-8.6); Neutrophils % (auto) 53.2 % (37.0-80.0); Nucleated Red Blood Cells % 0.1 %; Platelet Count (auto) 200 10^3/uL (140-450); Red Cell Distribution Width 15.3 % (11.8-14.3); White Blood Cell 6.5 10^3/uL (4.4-10.8)
[2024-04-20 05:59] LABS: Alanine Aminotransferase 16 U/L (7-40); Alkaline Phosphatase 117 U/L (46-116); Anion Gap 7 (5-15); Aspartate Aminotransferase 11 U/L (13-40); BUN/Creatinine Ratio 12.9 (10.0-20.0); Blood Urea Nitrogen 18 mg/dL (9-23); Calcium 8.9 mg/dL (8.7-10.4); Carbon Dioxide 20 mmol/L (20-30); Chloride 111 mmol/L (98-107); Glucose 149 mg/dL (74-106); Potassium 3.8 mmol/L (3.5-5.1); Sodium 138 mmol/L (136-145)
[2024-04-20 06:00] LABS: Albumin 3.8 g/dL (3.2-4.8); Bilirubin, Total 0.6 mg/dL (0.2-1.0); Total Protein 6.9 g/dL (5.7-8.2)
[2024-04-20 07:42] LABS: Triglycerides 55 mg/dL (< 150)
[2024-04-20 07:43] LABS: LDL Cholesterol 35 mg/dL (< 100)
[2024-04-20 07:44] LABS: HDL Cholesterol 39 mg/dL (40-59)
[2024-04-20 07:45] LABS: Cholesterol 88 mg/dL (< 200)
[2024-04-20] MEDS: SPIRONOLACTONE 25 MG TAB PO SCH (09:51)
[2024-04-20] MEDS: SACUBITRIL-VALSARTAN 24mg/26mg TAB PO SCH (09:51)
[2024-04-20] MEDS: CLOPIDOGREL BISULFATE 75 MG TAB PO SCH (09:51)
[2024-04-20] MEDS ORDERED: SPIR25TA PO (12:04)
[2024-04-20] MEDS ORDERED: SACU1TAB PO (12:04)
[2024-04-20] MEDS ORDERED: AMOX500T86 PO (12:04)
[2024-04-20] MEDS ORDERED: INSUINJ37 SC (14:38)
[2024-04-20] MEDS: INSULIN LANTUS (GLARGINE) 1 /0.01ml (100units/ml) SC SCH (20:05)
[2024-04-20] MEDS: TIMOLOL 0.5% EACHEYE SCH (21:36)
[2024-04-20] MEDS: DORZOLAMIDE 2% EACHEYE SCH (21:36)
[2024-04-21] VITALS (12 sets, daily range): BP systolic 125–148; BP diastolic 67–87; PULSE 28–89; RESP 17–24; TEMP 98–98.7; O2SAT 93–99
[2024-04-21 07:45] LABS: Chloride 110 mmol/L (98-107); Potassium 3.7 mmol/L (3.5-5.1); Sodium 138 mmol/L (136-145)
[2024-04-21 07:46] LABS: Calcium 9.2 mg/dL (8.7-10.4)
[2024-04-21 07:47] LABS: Anion Gap 7 (5-15); Carbon Dioxide 21 mmol/L (20-30)
[2024-04-21 07:52] LABS: BUN/Creatinine Ratio 13.5 (10.0-20.0); Blood Urea Nitrogen 17 mg/dL (9-23); Glucose 130 mg/dL (74-106)
[2024-04-21] MEDS: EMPAGLIFLOZIN 10 MG TAB PO SCH (10:11)
[2024-04-21 14:35] LABS: Base Excess -4.8 mmol/L (-2.0-3.0)
[2024-04-21] MEDS: IPRATROPIUM BROM 0.5 MG/2.5ML INH SOL NEB SCH (19:46)
[2024-04-21] MEDS: ALBUTEROL SULF 2.5 MG/0.5ML(0.5%) NEB SOLN NEB SCH (19:46)
[2024-04-21] MEDS: FUROSEMIDE 20 MG/2 ML VIAL IV ONE (21:38)
[2024-04-22] VITALS (14 sets, daily range): BP systolic 110–180; BP diastolic 62–103; PULSE 73–96; RESP 12–24; TEMP 98–98.8; O2SAT 94–100
[2024-04-22] MEDS: DOXYCYCLINE 100 MG TAB/CAP PO SCH (01:13)
[2024-04-22] MEDS: HEPARIN IN NS 1000Units/500mL 1,500 ML ONE (07:56)
[2024-04-22] MEDS: LIDOCAINE 2%HCL (LOCAL ANESTH.) INJ 20ML MDV ONE (07:56)
[2024-04-22] MEDS: IODIXANOL 320MG/ML 100ML BTL IV ONE (07:56)
[2024-04-22] MEDS: VANCOMYCIN 1GM/200ML 0 ML IV ONE (07:58)
[2024-04-22] MEDS: ceFAZolin 1GM VL ONE (07:58)
[2024-04-22 08:56] LABS: Basophils # (auto) 0.1 10 ^3/uL (0-0.2); Basophils % (auto) 0.8 % (0.0-2.0); Eosinophils # (auto) 0.4 10 ^3/uL (0-0.8); Eosinophils % (auto) 5.9 % (0.0-7.0); Hematocrit 38.9 % (41.0-53.0); Lymphocytes # (auto) 1.9 10 ^3/uL (0.4-5.4); Lymphocytes % (auto) 26.6 % (10.0-50.0); Mean Corpuscular Hemoglobin 27.1 pg (28.0-32.0); Mean Corpuscular Hgb Conc. 33.4 g/dL (32.0-36.0); Mean Corpuscular Volume 81.1 fL (80.0-100.0); Monocytes # (auto) 0.6 10 ^3/uL (0-1.3); Monocytes % (auto) 8.1 % (0.0-12.0); Neutrophils # (auto) 4.2 10 ^3/uL (1.6-8.6); Neutrophils % (auto) 58.6 % (37.0-80.0); Nucleated Red Blood Cells % 0.1 %; Platelet Count (auto) 219 10^3/uL (140-450); Red Cell Distribution Width 15.8 % (11.8-14.3); White Blood Cell 7.1 10^3/uL (4.4-10.8)
[2024-04-22 09:10] LABS: INR 1.11 (0.9-1.15); Partial Thromboplastin Time 29.3 SEC (24.5-34.5); Prothrombin Time 11.7 sec (9.3-11.8)
[2024-04-22 09:17] LABS: Alanine Aminotransferase 36 U/L (7-40); Albumin 3.7 g/dL (3.2-4.8); Alkaline Phosphatase 112 U/L (46-116); Anion Gap 7 (5-15); Aspartate Aminotransferase 26 U/L (13-40); BUN/Creatinine Ratio 12.2 (10.0-20.0); Blood Urea Nitrogen 17 mg/dL (9-23); Calcium 9.5 mg/dL (8.7-10.4); Carbon Dioxide 22 mmol/L (20-30); Chloride 108 mmol/L (98-107); Glucose 104 mg/dL (74-106); Magnesium 1.7 mg/dL (1.6-2.6); Potassium 3.7 mmol/L (3.5-5.1); Sodium 137 mmol/L (136-145)
[2024-04-22 09:18] LABS: Bilirubin, Total 0.7 mg/dL (0.2-1.0); Total Protein 7.2 g/dL (5.7-8.2)
[2024-04-22] MEDS: fentaNYL CITRATE 100 MCG/2 ML VL ONE ×2 (09:52→11:26)
[2024-04-22] MEDS: VANCOMYCIN HCL 1000 MG VL ONE ×2 (09:52→11:52)
[2024-04-22] MEDS: VANCOMYCIN 1GM/200ML 200 ML IV ONE (09:52)
[2024-04-22] MEDS: MIDAZOLAM HCL 2MG/2ML 2ml VIAL (1mg/ml) ONE ×2 (09:52→11:26)
[2024-04-22] MEDS: DOXYCYCLINE 100MG/250ML 250 ML IV SCH (13:30)
[2024-04-22] MEDS: FUROSEMIDE 20 MG/2 ML VIAL IV SCH (16:19)
[2024-04-22] MEDS: HYDROcodone-ACET 5/325MG TAB PO PRN (21:08)
[2024-04-22] MEDS: VANCOMYCIN 1GM/200ML 200 ML IV SCH (21:09)
[2024-04-23] VITALS (12 sets, daily range): BP systolic 116–133; BP diastolic 69–85; PULSE 63–89; RESP 16–20; TEMP 97.9–98.7; O2SAT 94–100
[2024-04-23 07:11] LABS: Basophils # (auto) 0.1 10 ^3/uL (0-0.2); Basophils % (auto) 1.6 % (0.0-2.0); Eosinophils # (auto) 0.5 10 ^3/uL (0-0.8); Eosinophils % (auto) 6.7 % (0.0-7.0); Hematocrit 37.4 % (41.0-53.0); Hemoglobin 12.6 g/dL (13.5-17.5); Lymphocytes # (auto) 1.3 10 ^3/uL (0.4-5.4); Lymphocytes % (auto) 17.6 % (10.0-50.0); Mean Corpuscular Hemoglobin 27.4 pg (28.0-32.0); Mean Corpuscular Hgb Conc. 33.8 g/dL (32.0-36.0); Mean Corpuscular Volume 81.1 fL (80.0-100.0); Monocytes # (auto) 0.7 10 ^3/uL (0-1.3); Monocytes % (auto) 9.6 % (0.0-12.0); Neutrophils # (auto) 4.8 10 ^3/uL (1.6-8.6); Neutrophils % (auto) 64.5 % (37.0-80.0); Nucleated Red Blood Cells % 0.2 %; Platelet Count (auto) 213 10^3/uL (140-450); Red Blood Cells 4.61 10^6/uL (4.5-5.90); Red Cell Distribution Width 15.6 % (11.8-14.3); White Blood Cell 7.5 10^3/uL (4.4-10.8)
[2024-04-23 07:25] LABS: Calcium 9.4 mg/dL (8.7-10.4); Chloride 107 mmol/L (98-107); Potassium 4.2 mmol/L (3.5-5.1); Sodium 137 mmol/L (136-145)
[2024-04-23 07:26] LABS: Anion Gap 6 (5-15); Carbon Dioxide 24 mmol/L (20-30)
[2024-04-23 07:31] LABS: BUN/Creatinine Ratio 12.8 (10.0-20.0); Blood Urea Nitrogen 19 mg/dL (9-23); Glucose 123 mg/dL (74-106)
[2024-04-23] MEDS: ACETAMINOPHEN 325 MG TAB PO PRN (15:25)
[2024-04-23] MEDS: PANTOPRAZOLE 40 MG TAB PO ONE (19:14)
[2024-04-23] MEDS: CARVEDILOL 3.125 MG TAB PO SCH (22:01)
[2024-04-24] VITALS (17 sets, daily range): BP systolic 106–149; BP diastolic 59–80; PULSE 60–104; RESP 16–20; TEMP 97.8–98.7; O2SAT 94–100
[2024-04-24] MEDS: PANTOPRAZOLE 40 MG TAB PO SCH (06:00)
[2024-04-24 06:29] LABS: Basophils # (auto) 0.1 10 ^3/uL (0-0.2); Eosinophils # (auto) 0.4 10 ^3/uL (0-0.8); Eosinophils % (auto) 5.3 % (0.0-7.0); Hematocrit 36.5 % (41.0-53.0); Hemoglobin 12.3 g/dL (13.5-17.5); Lymphocytes # (auto) 1.7 10 ^3/uL (0.4-5.4); Lymphocytes % (auto) 22.4 % (10.0-50.0); Mean Corpuscular Hemoglobin 27.4 pg (28.0-32.0); Mean Corpuscular Hgb Conc. 33.8 g/dL (32.0-36.0); Mean Corpuscular Volume 81.2 fL (80.0-100.0); Monocytes # (auto) 0.6 10 ^3/uL (0-1.3); Monocytes % (auto) 8.1 % (0.0-12.0); Neutrophils # (auto) 4.6 10 ^3/uL (1.6-8.6); Neutrophils % (auto) 62.2 % (37.0-80.0); Nucleated Red Blood Cells % 0.1 %; Platelet Count (auto) 195 10^3/uL (140-450); Red Cell Distribution Width 15.4 % (11.8-14.3); White Blood Cell 7.5 10^3/uL (4.4-10.8)
[2024-04-24 06:41] LABS: Anion Gap 5 (5-15); Calcium 9.2 mg/dL (8.7-10.4); Carbon Dioxide 22 mmol/L (20-30); Chloride 109 mmol/L (98-107); Potassium 4.1 mmol/L (3.5-5.1); Sodium 136 mmol/L (136-145)
[2024-04-24 06:47] LABS: Glucose 155 mg/dL (74-106)
[2024-04-24 06:48] LABS: BUN/Creatinine Ratio 11.8 (10.0-20.0); Blood Urea Nitrogen 17 mg/dL (9-23)
[2024-04-25] VITALS (13 sets, daily range): BP systolic 118–135; BP diastolic 54–79; PULSE 74–119; RESP 18–20; TEMP 98.1–98.5; O2SAT 92–100
[2024-04-25 05:53] LABS: Basophils # (auto) 0 10 ^3/uL (0-0.2); Basophils % (auto) 0.2 % (0.0-2.0); Eosinophils # (auto) 0 10 ^3/uL (0-0.8); Eosinophils % (auto) 0.5 % (0.0-7.0); Hematocrit 43.1 % (41.0-53.0); Hemoglobin 14.8 g/dL (13.5-17.5); Lymphocytes # (auto) 1.7 10 ^3/uL (0.4-5.4); Lymphocytes % (auto) 20.8 % (10.0-50.0); Mean Corpuscular Hemoglobin 33.8 pg (28.0-32.0); Mean Corpuscular Hgb Conc. 34.3 g/dL (32.0-36.0); Mean Corpuscular Volume 98.3 fL (80.0-100.0); Monocytes # (auto) 0.9 10 ^3/uL (0-1.3); Monocytes % (auto) 11.5 % (0.0-12.0); Neutrophils # (auto) 5.4 10 ^3/uL (1.6-8.6); Platelet Count (auto) 205 10^3/uL (140-450); Red Blood Cells 4.38 10^6/uL (4.5-5.90); Red Cell Distribution Width 14.4 % (11.8-14.3); White Blood Cell 8.1 10^3/uL (4.4-10.8)
[2024-04-25 06:23] LABS: Chloride 113 mmol/L (98-107); Potassium 3.3 mmol/L (3.5-5.1); Sodium 144 mmol/L (136-145)
[2024-04-25 06:24] LABS: Anion Gap 7 (5-15); Carbon Dioxide 24 mmol/L (20-30)
[2024-04-25 06:25] LABS: Calcium 9.6 mg/dL (8.7-10.4)
[2024-04-25 06:29] LABS: BUN/Creatinine Ratio 15.8 (10.0-20.0); Blood Urea Nitrogen 12 mg/dL (9-23); Glucose 73 mg/dL (74-106)
[2024-04-25] MEDS: POTASSIUM CHL 20 Meq TABLET PO ONE (13:32)
[2024-04-26] VITALS (14 sets, daily range): BP systolic 101–129; BP diastolic 57–73; PULSE 73–85; RESP 16–20; TEMP 97.7–99.5; O2SAT 93–100
[2024-04-26] MEDS: FUROSEMIDE 20 MG TAB PO SCH (09:59)
[2024-04-26 11:34] LABS: Basophils # (auto) 0.1 10 ^3/uL (0-0.2); Basophils % (auto) 1.3 % (0.0-2.0); Eosinophils # (auto) 0.4 10 ^3/uL (0-0.8); Eosinophils % (auto) 5.9 % (0.0-7.0); Hematocrit 36.6 % (41.0-53.0); Hemoglobin 12.2 g/dL (13.5-17.5); Lymphocytes # (auto) 1.7 10 ^3/uL (0.4-5.4); Mean Corpuscular Hemoglobin 27.5 pg (28.0-32.0); Mean Corpuscular Hgb Conc. 33.2 g/dL (32.0-36.0); Mean Corpuscular Volume 82.6 fL (80.0-100.0); Monocytes # (auto) 0.6 10 ^3/uL (0-1.3); Monocytes % (auto) 8.7 % (0.0-12.0); Neutrophils # (auto) 4.1 10 ^3/uL (1.6-8.6); Neutrophils % (auto) 59.1 % (37.0-80.0); Nucleated Red Blood Cells % 0.1 %; Platelet Count (auto) 195 10^3/uL (140-450); Red Blood Cells 4.43 10^6/uL (4.5-5.90); Red Cell Distribution Width 15.8 % (11.8-14.3); White Blood Cell 6.9 10^3/uL (4.4-10.8)
[2024-04-26 11:49] LABS: Alanine Aminotransferase 36 U/L (7-40); Albumin 3.6 g/dL (3.2-4.8); Alkaline Phosphatase 110 U/L (46-116); Anion Gap 5 (5-15); BUN/Creatinine Ratio 10.1 (10.0-20.0); Bilirubin, Total 0.7 mg/dL (0.2-1.0); Blood Urea Nitrogen 14 mg/dL (9-23); Calcium 9.4 mg/dL (8.7-10.4); Carbon Dioxide 24 mmol/L (20-30); Chloride 109 mmol/L (98-107); Glucose 141 mg/dL (74-106); Potassium 4.5 mmol/L (3.5-5.1); Sodium 138 mmol/L (136-145)
[2024-04-26 11:58] LABS: Aspartate Aminotransferase 26 U/L (13-40)
[2024-04-27] VITALS (15 sets, daily range): BP systolic 96–142; BP diastolic 47–84; PULSE 66–87; RESP 16–21; TEMP 97.5–99.4; O2SAT 90–99
[2024-04-28] VITALS (14 sets, daily range): BP systolic 109–131; BP diastolic 63–78; PULSE 20–95; RESP 18–20; TEMP 79–99.3; O2SAT 93–99
[2024-04-28 07:19] LABS: Basophils # (auto) 0.1 10 ^3/uL (0-0.2); Hematocrit 36.1 % (41.0-53.0); Neutrophils % (auto) 56.1 % (37.0-80.0)
[2024-04-28 07:22] LABS: Basophils % (auto) 1.1 % (0.0-2.0); Eosinophils # (auto) 0.5 10 ^3/uL (0-0.8); Eosinophils % (auto) 5.5 % (0.0-7.0); Hemoglobin 12.2 g/dL (13.5-17.5); Lymphocytes # (auto) 2.4 10 ^3/uL (0.4-5.4); Lymphocytes % (auto) 28.1 % (10.0-50.0); Mean Corpuscular Hemoglobin 27.9 pg (28.0-32.0); Mean Corpuscular Hgb Conc. 33.8 g/dL (32.0-36.0); Mean Corpuscular Volume 82.5 fL (80.0-100.0); Monocytes # (auto) 0.8 10 ^3/uL (0-1.3); Monocytes % (auto) 9.2 % (0.0-12.0); Neutrophils # (auto) 4.9 10 ^3/uL (1.6-8.6); Platelet Count (auto) 183 10^3/uL (140-450); Red Blood Cells 4.37 10^6/uL (4.5-5.90); White Blood Cell 8.7 10^3/uL (4.4-10.8)
[2024-04-28 07:44] LABS: Alanine Aminotransferase 41 U/L (7-40); Alkaline Phosphatase 112 U/L (46-116); Anion Gap 4 (5-15); Aspartate Aminotransferase 33 U/L (13-40); BUN/Creatinine Ratio 8.6 (10.0-20.0); Blood Urea Nitrogen 13 mg/dL (9-23); Calcium 9.4 mg/dL (8.7-10.4); Carbon Dioxide 27 mmol/L (20-30); Chloride 107 mmol/L (98-107); Glucose 150 mg/dL (74-106); Potassium 4.4 mmol/L (3.5-5.1); Sodium 138 mmol/L (136-145)
[2024-04-28 07:45] LABS: Albumin 3.6 g/dL (3.2-4.8); Bilirubin, Total 0.7 mg/dL (0.2-1.0); Phosphorus 3.4 mg/dL (2.4-5.1); Total Protein 7.1 g/dL (5.7-8.2)
[2024-04-29] VITALS (13 sets, daily range): BP systolic 104–140; BP diastolic 53–80; PULSE 45–88; RESP 17–100; TEMP 98.1–98.9; O2SAT 95–100
[2024-04-29 20:11] LABS: Urine Bacteria None Seen /hpf (None Seen)
[2024-04-29 20:27] LABS: Urine Blood TRACE /uL (Negative); Urine Clarity Clear (Clear); Urine Color Light-Yellow (Yellow); Urine Protein, UAD TRACE (Negative); Urine Specific Gravity 1.019 (1.001-1.035); Urine Urobilinogen Normal (Negative); Urine WBC 2 /hpf (0 - 3); Urine pH 5.5 (5.0-9.0)
[2024-04-30] VITALS (8 sets, daily range): BP systolic 115–130; BP diastolic 61–78; PULSE 57–91; RESP 16–18; TEMP 98.1–98.5; O2SAT 94–100
== END 2024-04-30 12:39 | DRG 242 ==
LOC: ER 17:45 → TELE 22:33 → TELE-WESTW 23:46 → WEST WING 04-24 23:55
PROVIDERS: ADMIT Internal Medicine Pulmonary Disease; ATTEND Emergency Medicine
PROC: 0JH606Z Insertion of Pacemaker, Dual Chamber into Chest Subcutaneous Tissue and Fascia, Open Approach (ICD-10-PCS; principal; 2024-04-22)
PROC: 02H63JZ Insertion of Pacemaker Lead into Right Atrium, Percutaneous Approach (ICD-10-PCS; 2024-04-22)
PROC: 02HK3JZ Insertion of Pacemaker Lead into Right Ventricle, Percutaneous Approach (ICD-10-PCS; 2024-04-22)
PROC: B5171ZZ Fluoroscopy of Left Subclavian Vein using Low Osmolar Contrast (ICD-10-PCS; 2024-04-22)
PROC: B51N1ZZ Fluoroscopy of Left Upper Extremity Veins using Low Osmolar Contrast (ICD-10-PCS; 2024-04-22)
PROC: B547ZZA Ultrasonography of Left Subclavian Vein, Guidance (ICD-10-PCS; 2024-04-22)
DX: I44.1 Atrioventricular block, second degree (principal); I21.A1 Myocardial infarction type 2; J15.69 Pneumonia due to other Gram-negative bacteria; J96.01 Acute respiratory failure with hypoxia; N17.0 Acute kidney failure with tubular necrosis; I50.23 Acute on chronic systolic (congestive) heart failure; J15.9 Unspecified bacterial pneumonia; I13.0 Hypertensive heart and chronic kidney disease with heart failure and stage 1 through stage 4 chronic kidney disease, or unspecified chronic kidney disease; E87.20 Acidosis, unspecified; I69.354 Hemiplegia and hemiparesis following cerebral infarction affecting left non-dominant side; E87.3 Alkalosis; I47.20 Ventricular tachycardia, unspecified; E11.22 Type 2 diabetes mellitus with diabetic chronic kidney disease; N18.9 Chronic kidney disease, unspecified; E66.01 Morbid (severe) obesity due to excess calories; I25.10 Atherosclerotic heart disease of native coronary artery without angina pectoris; E78.5 Hyperlipidemia, unspecified; F17.210 Nicotine dependence, cigarettes, uncomplicated; N40.0 Benign prostatic hyperplasia without lower urinary tract symptoms; K21.9 Gastro-esophageal reflux disease without esophagitis; Z20.822 Contact with and (suspected) exposure to COVID-19; I25.5 Ischemic cardiomyopathy; Z79.82 Long term (current) use of aspirin; Z79.899 Other long term (current) drug therapy; Z79.4 Long term (current) use of insulin; Z90.49 Acquired absence of other specified parts of digestive tract; Z95.5 Presence of coronary angioplasty implant and graft; Z83.3 Family history of diabetes mellitus; Z68.32 Body mass index [BMI] 32.0-32.9, adult
CPT/HCPCS: 33208; 36012; 36415; 36600; 70450; 70551; 71045; 80048; 80053; 80061; 81001; 82607; 82805; 82962; 83036; 83605; 83735; 83880; 84100; 84443; 84484; 85025; 85610; 85730; 86850; 86900; 86901; 87081; 87426; 87804; 93005; 93306; 93886; 94640; 96365; 96368; 96375; 97110; 97116; 97163; 97530; 99152; A4565; G0378; J0690; J1815; J2250; J3490; Q9967

== ENCOUNTER 2024-06-06 17:30 | Inpatient (IN) | payer BC ==
[~2024-06-06] VITALS: Ht 193 cm; Wt 117.0 kg
[2024-06-06 17:30] VITALS: O2SAT 96
[~2024-06-06 17:30] MED LIST changes: +AMOX500T86 PO; -FURO40TA4 PO; +FURO80TA3 PO; -INSLANTI SC; +INSUINJ37 SC; +LOSA-535 PO; +SACU1TAB PO; +SPIR25TA PO
[2024-06-06 19:30] VITALS: PULSE 82; RESP 14; O2SAT 96
[2024-06-06 19:39] LABS: Basophils # (auto) 0.1 10 ^3/uL (0-0.2); Basophils % (auto) 1.2 % (0.0-2.0); Eosinophils # (auto) 0.4 10 ^3/uL (0-0.8); Eosinophils % (auto) 5.1 % (0.0-7.0); Hematocrit 39.5 % (41.0-53.0); Lymphocytes # (auto) 1.9 10 ^3/uL (0.4-5.4); Lymphocytes % (auto) 26.6 % (10.0-50.0); Mean Corpuscular Hemoglobin 27.4 pg (28.0-32.0); Mean Corpuscular Hgb Conc. 32.8 g/dL (32.0-36.0); Mean Corpuscular Volume 83.6 fL (80.0-100.0); Monocytes # (auto) 0.6 10 ^3/uL (0-1.3); Monocytes % (auto) 8.2 % (0.0-12.0); Neutrophils # (auto) 4.2 10 ^3/uL (1.6-8.6); Neutrophils % (auto) 58.9 % (37.0-80.0); Nucleated Red Blood Cells % 0.2 %; Platelet Count (auto) 216 10^3/uL (140-450); Red Blood Cells 4.73 10^6/uL (4.5-5.90); White Blood Cell 7.2 10^3/uL (4.4-10.8)
[2024-06-06 19:48] LABS: Alanine Aminotransferase 12 U/L (7-40); Albumin 4.3 g/dL (3.2-4.8); Alkaline Phosphatase 123 U/L (46-116); Anion Gap 7 (5-15); Aspartate Aminotransferase < 8 U/L (13-40); BUN/Creatinine Ratio 16.6 (10.0-20.0); Blood Urea Nitrogen 40 mg/dL (9-23); Carbon Dioxide 20 mmol/L (20-31); Chloride 112 mmol/L (98-107); Glucose 279 mg/dL (74-106); Lipase 40 U/L (12-53); Potassium 4.7 mmol/L (3.5-5.1); Sodium 139 mmol/L (136-145)
[2024-06-06 19:49] LABS: Bilirubin, Total 0.7 mg/dL (0.2-1.0); Total Protein 7.9 g/dL (5.7-8.2)
[2024-06-06] MEDS ORDERED: ACETAMINOPHEN 325 MG TAB PO PRN (22:30)
[2024-06-06] MEDS ORDERED: DOCUSATE SOD 100 MG CAP PO PRN (22:30)
[2024-06-06] MEDS ORDERED: ONDANSETRON HCL 4 MG/2 ML VIAL IV PRN (22:30)
[2024-06-06] MEDS ORDERED: DEXTROSE (50%) 50ML SYRG IV PRN (22:30)
[2024-06-06] MEDS ORDERED: hydrALAZINE HCL 20 MG/ML VL IV PRN (22:30)
[2024-06-06] MEDS ORDERED: HYDROcodone-ACET 5/325MG TAB PO PRN (22:30)
[2024-06-06] MEDS: SODIUM CHLORIDE 0.9% 1,000 ML IV ONE (23:01)
[2024-06-06] MEDS: SODIUM CHLORIDE 0.9% 1,000 ML IV SCH (23:02)
[2024-06-06] MEDS: ONDANSETRON HCL 4 MG/2 ML VIAL IV ONE (23:02)
[2024-06-06] MEDS ORDERED: NITROGLYCERIN 0.4 MG SL TAB SL PRN (23:15)
[2024-06-06] MEDS ORDERED: MORPHINE SULFATE INJ 2 MG/ml SYRG IV PRN (23:15)
[2024-06-07] VITALS (9 sets, daily range): BP systolic 126–146; BP diastolic 68–86; PULSE 52–82; RESP 16–18; TEMP 97.6–98.3; O2SAT 91–99
[2024-06-07] MEDS: ACCU-CHEK COMFORT CURVE STRIP VI SCH (06:39)
[2024-06-07] MEDS: InsuLIN REG 1unit/0.01ml Soln (100units/ml) SC SCH (06:39)
[2024-06-07] MEDS: FAMOTIDINE (10MG/ML) 2ML VL IV SCH (09:08)
[2024-06-07] MEDS: ASPirin 81 mg TAB PO SCH (09:08)
[2024-06-07] MEDS: CARVEDILOL 3.125 MG TAB PO SCH (09:09)
[2024-06-07] MEDS: CLOPIDOGREL BISULFATE 75 MG TAB PO ONE (10:45)
[2024-06-07] MEDS: FUROSEMIDE 40 MG TAB PO ONE (13:00)
[2024-06-07] MEDS: SPIRONOLACTONE 25 MG TAB PO ONE (13:00)
[2024-06-07 15:13] LABS: Basophils # (auto) 0 10 ^3/uL (0-0.2); Basophils % (auto) 0.3 % (0.0-2.0); Eosinophils # (auto) 0.3 10 ^3/uL (0-0.8); Eosinophils % (auto) 5.5 % (0.0-7.0); Hematocrit 37.9 % (41.0-53.0); Hemoglobin 12.5 g/dL (13.5-17.5); Lymphocytes # (auto) 1.6 10 ^3/uL (0.4-5.4); Lymphocytes % (auto) 26.6 % (10.0-50.0); Mean Corpuscular Hemoglobin 27.4 pg (28.0-32.0); Mean Corpuscular Volume 83.1 fL (80.0-100.0); Monocytes # (auto) 0.5 10 ^3/uL (0-1.3); Monocytes % (auto) 8.2 % (0.0-12.0); Neutrophils # (auto) 3.6 10 ^3/uL (1.6-8.6); Neutrophils % (auto) 59.4 % (37.0-80.0); Nucleated Red Blood Cells % 0.1 %; Platelet Count (auto) 196 10^3/uL (140-450); Red Blood Cells 4.56 10^6/uL (4.5-5.90); Red Cell Distribution Width 16.4 % (11.8-14.3)
[2024-06-07 15:38] LABS: Alanine Aminotransferase 12 U/L (7-40); Alkaline Phosphatase 108 U/L (46-116); Anion Gap 7 (5-15); Aspartate Aminotransferase 8 U/L (13-40); BUN/Creatinine Ratio 19.8 (10.0-20.0); Blood Urea Nitrogen 34 mg/dL (9-23); Calcium 9.5 mg/dL (8.7-10.4); Carbon Dioxide 20 mmol/L (20-31); Chloride 114 mmol/L (98-107); Potassium 4.4 mmol/L (3.5-5.1); Sodium 141 mmol/L (136-145)
[2024-06-07 15:39] LABS: Bilirubin, Total 1.2 mg/dL (0.2-1.0); Total Protein 7.5 g/dL (5.7-8.2)
[2024-06-07 15:43] LABS: Glucose 132 mg/dL (74-106)
[2024-06-07] MEDS ORDERED: FUROSEMIDE 40 MG TAB PO SCH (18:00)
[2024-06-07] MEDS: ATORVASTATIN 20 MG TAB PO SCH (21:37)
[2024-06-07] MEDS: hydrALAZINE HCL 25 MG TAB PO SCH (21:38)
[2024-06-07] MEDS: DOXAZOSIN MESYL 2 MG TAB PO SCH (21:39)
[2024-06-07] MEDS: INSULIN LANTUS (GLARGINE) 1 /0.01ml (100units/ml) SC SCH (21:42)
[2024-06-07] MEDS ORDERED: PATIENTS OWN MEDICATION PO SCH (22:00)
[2024-06-07] MEDS ORDERED: InsuLIN REG 1unit/0.01ml Soln (100units/ml) SC SCH (22:00)
[2024-06-08] VITALS (8 sets, daily range): BP systolic 120–146; BP diastolic 64–120; PULSE 73–91; RESP 15–18; TEMP 96.9–98.3; O2SAT 95–100
[2024-06-08] MEDS: LIDOCAINE 2% TOPICAL JELLY 5 ML URJT TOP ONE (03:00)
[2024-06-08 08:18] LABS: Basophils # (auto) 0.1 10 ^3/uL (0-0.2); Basophils % (auto) 1.4 % (0.0-2.0); Eosinophils # (auto) 0.3 10 ^3/uL (0-0.8); Eosinophils % (auto) 5.8 % (0.0-7.0); Hematocrit 35.6 % (41.0-53.0); Hemoglobin 11.9 g/dL (13.5-17.5); Lymphocytes # (auto) 1.5 10 ^3/uL (0.4-5.4); Lymphocytes % (auto) 25.5 % (10.0-50.0); Mean Corpuscular Hemoglobin 27.6 pg (28.0-32.0); Mean Corpuscular Hgb Conc. 33.4 g/dL (32.0-36.0); Mean Corpuscular Volume 82.5 fL (80.0-100.0); Monocytes # (auto) 0.4 10 ^3/uL (0-1.3); Monocytes % (auto) 7.1 % (0.0-12.0); Neutrophils # (auto) 3.5 10 ^3/uL (1.6-8.6); Neutrophils % (auto) 60.2 % (37.0-80.0); Nucleated Red Blood Cells % 0.1 %; Platelet Count (auto) 198 10^3/uL (140-450); Red Blood Cells 4.32 10^6/uL (4.5-5.90); Red Cell Distribution Width 16.6 % (11.8-14.3); White Blood Cell 5.8 10^3/uL (4.4-10.8)
[2024-06-08 08:37] LABS: Alanine Aminotransferase 12 U/L (7-40); Albumin 3.9 g/dL (3.2-4.8); Alkaline Phosphatase 112 U/L (46-116); Anion Gap 6 (5-15); Aspartate Aminotransferase 10 U/L (13-40); BUN/Creatinine Ratio 18.8 (10.0-20.0); Blood Urea Nitrogen 31 mg/dL (9-23); Calcium 9.4 mg/dL (8.7-10.4); Carbon Dioxide 20 mmol/L (20-31); Chloride 112 mmol/L (98-107); Glucose 148 mg/dL (74-106); Potassium 4.2 mmol/L (3.5-5.1); Sodium 138 mmol/L (136-145)
[2024-06-08 08:38] LABS: Bilirubin, Total 0.7 mg/dL (0.2-1.0); Total Protein 7.3 g/dL (5.7-8.2)
[2024-06-08] MEDS ORDERED: SPIRONOLACTONE 25 MG TAB PO SCH (10:00)
[2024-06-08] MEDS: CLOPIDOGREL BISULFATE 75 MG TAB PO SCH (10:31)
[2024-06-08] MEDS: FUROSEMIDE 40 MG/4 ML VIAL IV SCH (10:57)
[2024-06-08 11:37] LABS: Phosphorus 4.1 mg/dL (2.4-5.1)
[2024-06-08 11:39] LABS: Magnesium 1.9 mg/dL (1.6-2.6)
[2024-06-08] MEDS: FINASTERIDE 5 MG TAB PO ONE (17:28)
[2024-06-09] VITALS (8 sets, daily range): BP systolic 116–149; BP diastolic 7–83; PULSE 60–88; RESP 14–16; TEMP 97.5–98.5; O2SAT 95–98
[2024-06-09 07:13] LABS: Basophils # (auto) 0.1 10 ^3/uL (0-0.2); Basophils % (auto) 1.3 % (0.0-2.0); Eosinophils # (auto) 0.3 10 ^3/uL (0-0.8); Eosinophils % (auto) 4.5 % (0.0-7.0); Hematocrit 35.1 % (41.0-53.0); Hemoglobin 11.9 g/dL (13.5-17.5); Lymphocytes # (auto) 1.5 10 ^3/uL (0.4-5.4); Lymphocytes % (auto) 22.7 % (10.0-50.0); Mean Corpuscular Hemoglobin 27.8 pg (28.0-32.0); Mean Corpuscular Hgb Conc. 33.9 g/dL (32.0-36.0); Mean Corpuscular Volume 82.2 fL (80.0-100.0); Monocytes # (auto) 0.5 10 ^3/uL (0-1.3); Monocytes % (auto) 7.5 % (0.0-12.0); Neutrophils # (auto) 4.2 10 ^3/uL (1.6-8.6); Platelet Count (auto) 191 10^3/uL (140-450); Red Blood Cells 4.27 10^6/uL (4.5-5.90); Red Cell Distribution Width 16.2 % (11.8-14.3); White Blood Cell 6.6 10^3/uL (4.4-10.8)
[2024-06-09 07:16] LABS: Chloride 112 mmol/L (98-107); Potassium 4.3 mmol/L (3.5-5.1); Sodium 140 mmol/L (136-145)
[2024-06-09 07:17] LABS: Anion Gap 7 (5-15); Calcium 9.4 mg/dL (8.7-10.4); Carbon Dioxide 21 mmol/L (20-31)
[2024-06-09 07:23] LABS: BUN/Creatinine Ratio 16.2 (10.0-20.0); Blood Urea Nitrogen 25 mg/dL (9-23); Glucose 96 mg/dL (74-106)
[2024-06-09 08:06] LABS: PSA Free 0.52 ng/mL; Prostate Specific Antigen 1.5 ng/mL (0.0-4.0)
[2024-06-09] MEDS: FINASTERIDE 5 MG TAB PO SCH (10:42)
[2024-06-09] MEDS: CARVEDILOL 3.125 MG TAB PO SCH (21:23)
[2024-06-10] VITALS (8 sets, daily range): BP systolic 118–147; BP diastolic 63–85; PULSE 76–89; RESP 14–18; TEMP 97.8–98.4; O2SAT 95–98
[2024-06-10 06:52] LABS: Anion Gap 6 (5-15); Basophils # (auto) 0.1 10 ^3/uL (0-0.2); Basophils % (auto) 1.2 % (0.0-2.0); Carbon Dioxide 19 mmol/L (20-31); Chloride 113 mmol/L (98-107); Eosinophils # (auto) 0.3 10 ^3/uL (0-0.8); Eosinophils % (auto) 5.1 % (0.0-7.0); Hematocrit 33.9 % (41.0-53.0); Hemoglobin 11.5 g/dL (13.5-17.5); Lymphocytes # (auto) 1.5 10 ^3/uL (0.4-5.4); Lymphocytes % (auto) 23.5 % (10.0-50.0); Mean Corpuscular Hemoglobin 28.2 pg (28.0-32.0); Mean Corpuscular Hgb Conc. 33.8 g/dL (32.0-36.0); Mean Corpuscular Volume 83.6 fL (80.0-100.0); Monocytes # (auto) 0.5 10 ^3/uL (0-1.3); Monocytes % (auto) 8.3 % (0.0-12.0); Neutrophils # (auto) 3.9 10 ^3/uL (1.6-8.6); Neutrophils % (auto) 61.9 % (37.0-80.0); Nucleated Red Blood Cells % 0.1 %; Platelet Count (auto) 180 10^3/uL (140-450); Potassium 3.8 mmol/L (3.5-5.1); Red Blood Cells 4.06 10^6/uL (4.5-5.90); Red Cell Distribution Width 16.3 % (11.8-14.3); Sodium 138 mmol/L (136-145); White Blood Cell 6.2 10^3/uL (4.4-10.8)
[2024-06-10 06:53] LABS: Calcium 9.5 mg/dL (8.7-10.4)
[2024-06-10 06:58] LABS: BUN/Creatinine Ratio 13.2 (10.0-20.0); Blood Urea Nitrogen 19 mg/dL (9-23); Glucose 143 mg/dL (74-106)
[2024-06-10] MEDS: SODIUM BICARB 50mEq/50ml Vial 50 ML in SOD CHL 0.45% 1,000 ML IV SCH (14:32)
[2024-06-11 01:00] VITALS: BP 146/82; PULSE 78; RESP 19; TEMP 98.4; O2SAT 97
[2024-06-11 05:00] VITALS: BP 150/89; PULSE 77; RESP 18; TEMP 98.2; O2SAT 97
[2024-06-11] MEDS ORDERED: HYDR50TA47 PO (07:22)
[2024-06-11] MEDS ORDERED: SPIR25TA PO (07:23)
[2024-06-11] MEDS ORDERED: SPIR25TA8 PO (07:26)
[2024-06-11 07:54] LABS: Basophils # (auto) 0.1 10 ^3/uL (0-0.2); Basophils % (auto) 1.8 % (0.0-2.0); Eosinophils # (auto) 0.4 10 ^3/uL (0-0.8); Hematocrit 34.1 % (41.0-53.0); Hemoglobin 11.6 g/dL (13.5-17.5); Lymphocytes # (auto) 1.7 10 ^3/uL (0.4-5.4); Lymphocytes % (auto) 28.9 % (10.0-50.0); Mean Corpuscular Hemoglobin 27.9 pg (28.0-32.0); Mean Corpuscular Hgb Conc. 33.9 g/dL (32.0-36.0); Mean Corpuscular Volume 82.3 fL (80.0-100.0); Monocytes # (auto) 0.5 10 ^3/uL (0-1.3); Monocytes % (auto) 8.8 % (0.0-12.0); Neutrophils # (auto) 3.2 10 ^3/uL (1.6-8.6); Neutrophils % (auto) 54.5 % (37.0-80.0); Nucleated Red Blood Cells % 0.1 %; Platelet Count (auto) 202 10^3/uL (140-450); Red Blood Cells 4.14 10^6/uL (4.5-5.90); White Blood Cell 5.9 10^3/uL (4.4-10.8)
[2024-06-11 07:59] LABS: Chloride 110 mmol/L (98-107); Sodium 140 mmol/L (136-145)
[2024-06-11 08:00] VITALS: RESP 16
[2024-06-11 08:00] LABS: Anion Gap 6 (5-15); Calcium 9.7 mg/dL (8.7-10.4); Carbon Dioxide 24 mmol/L (20-31)
[2024-06-11 08:05] LABS: BUN/Creatinine Ratio 14.8 (10.0-20.0); Blood Urea Nitrogen 21 mg/dL (9-23); Glucose 89 mg/dL (74-106)
[2024-06-11 09:00] VITALS: BP 149/87; PULSE 83; RESP 17; TEMP 97.7; O2SAT 92
[2024-06-11] MEDS: SPIRONOLACTONE 25 MG TAB PO SCH (11:01)
[2024-06-11] MEDS: SACUBITRIL-VALSARTAN 24mg/26mg TAB PO SCH (11:01)
[2024-06-11 13:00] VITALS: BP 149/90; PULSE 80; RESP 18; TEMP 97.8; O2SAT 98
[2024-06-11 15:38] VITALS: BP 149/87; PULSE 83; TEMP 36.6
[2024-06-12] MEDS ORDERED: CIPR-173 PO (21:11)
== END 2024-06-11 17:00 | disposition home health service (06) | DRG 682 ==
LOC: ER 17:30 → TELE 23:07 → TELE-CENTR 06-07 02:30 → CENTRAL 06-09 22:03
PROVIDERS: ADMIT Internal Medicine Geriatric Medicine; ATTEND Internal Medicine Geriatric Medicine
DX: N17.9 Acute kidney failure, unspecified (principal); G93.41 Metabolic encephalopathy; I50.23 Acute on chronic systolic (congestive) heart failure; I13.0 Hypertensive heart and chronic kidney disease with heart failure and stage 1 through stage 4 chronic kidney disease, or unspecified chronic kidney disease; E87.20 Acidosis, unspecified; N40.1 Benign prostatic hyperplasia with lower urinary tract symptoms; E11.65 Type 2 diabetes mellitus with hyperglycemia; E11.22 Type 2 diabetes mellitus with diabetic chronic kidney disease; N18.31 Chronic kidney disease, stage 3a; R33.8 Other retention of urine; E78.5 Hyperlipidemia, unspecified; F17.210 Nicotine dependence, cigarettes, uncomplicated; N28.1 Cyst of kidney, acquired; I25.10 Atherosclerotic heart disease of native coronary artery without angina pectoris; Z86.73 Personal history of transient ischemic attack (TIA), and cerebral infarction without residual deficits; Z90.49 Acquired absence of other specified parts of digestive tract; Z95.0 Presence of cardiac pacemaker; Z83.3 Family history of diabetes mellitus; Z79.899 Other long term (current) drug therapy; Z79.82 Long term (current) use of aspirin; Z79.4 Long term (current) use of insulin; Z79.02 Long term (current) use of antithrombotics/antiplatelets; Z95.5 Presence of coronary angioplasty implant and graft
CPT/HCPCS: 36415; 70450; 71045; 74176; 76775; 80048; 80053; 82140; 82306; 82962; 83690; 83735; 83880; 83970; 84100; 84154; 84484; 85025; 92610; 93005; 96361; 96374; 97110; 97116; 97163; 97530; 99291; G0378; J1815; J2405; J3490

== ENCOUNTER 2024-06-12 17:28 | Inpatient (IN) | payer BC ==
[~2024-06-12] VITALS: Ht 190.5 cm; Wt 114.1 kg
[~2024-06-12 17:28] MED LIST changes: -AMLO1TAB23 PO; -AMOX500T86 PO; -FURO1TAB77 PO; -LOPE2TAB99 PO; -LOSA-535 PO; +SPIR25TA8 PO
[2024-06-12 18:00] VITALS: PULSE 83; RESP 18; O2SAT 97
[2024-06-12 19:03] LABS: Basophils # (auto) 0.1 10 ^3/uL (0-0.2); Basophils % (auto) 1.2 % (0.0-2.0); Eosinophils # (auto) 0.3 10 ^3/uL (0-0.8); Eosinophils % (auto) 4.7 % (0.0-7.0); Hematocrit 36.4 % (41.0-53.0); Hemoglobin 12.3 g/dL (13.5-17.5); Lymphocytes # (auto) 1.6 10 ^3/uL (0.4-5.4); Lymphocytes % (auto) 24.7 % (10.0-50.0); Mean Corpuscular Hemoglobin 27.6 pg (28.0-32.0); Mean Corpuscular Hgb Conc. 33.8 g/dL (32.0-36.0); Mean Corpuscular Volume 81.6 fL (80.0-100.0); Monocytes # (auto) 0.5 10 ^3/uL (0-1.3); Neutrophils # (auto) 3.9 10 ^3/uL (1.6-8.6); Neutrophils % (auto) 61.4 % (37.0-80.0); Nucleated Red Blood Cells % 0.1 %; Platelet Count (auto) 220 10^3/uL (140-450); Red Blood Cells 4.46 10^6/uL (4.5-5.90); White Blood Cell 6.4 10^3/uL (4.4-10.8)
[2024-06-12 19:17] LABS: Alanine Aminotransferase 10 U/L (7-40); Albumin 3.8 g/dL (3.2-4.8); Alkaline Phosphatase 105 U/L (46-116); Anion Gap 5 (5-15); Aspartate Aminotransferase 13 U/L (13-40); BUN/Creatinine Ratio 13.8 (10.0-20.0); Blood Urea Nitrogen 19 mg/dL (9-23); Calcium 9.6 mg/dL (8.7-10.4); Carbon Dioxide 27 mmol/L (20-31); Chloride 109 mmol/L (98-107); Potassium 4.1 mmol/L (3.5-5.1); Sodium 141 mmol/L (136-145)
[2024-06-12 19:18] LABS: Total Protein 7.2 g/dL (5.7-8.2)
[2024-06-12 19:23] LABS: Glucose 203 mg/dL (74-106)
[2024-06-12] MEDS: PIPERACILLIN-TAZO 4.5GM 100 ML IV ONE (19:50)
[2024-06-12 20:00] LABS: Urine Bacteria FEW /hpf (None Seen); Urine Blood 2+ /uL (Negative); Urine Clarity Clear (Clear); Urine Color Yellow (Yellow); Urine Mucus FEW (None Seen); Urine Protein, UAD TRACE (Negative); Urine Specific Gravity 1.019 (1.001-1.035); Urine Urobilinogen 2 mg/dL (Negative); Urine WBC 9 /hpf (0 - 3)
[2024-06-12] MEDS: MORPHINE SULFATE 4 MG/ML SYR/VIAL IV ONE (20:18)
[2024-06-12] MEDS: ONDANSETRON HCL 4 MG/2 ML VIAL IV ONE (20:19)
[2024-06-12] MEDS ORDERED: CIPR-173 PO (21:11)
[2024-06-13] MEDS ORDERED: HYDROcodone-ACET 5/325MG TAB PO PRN (13:45)
[2024-06-13] MEDS ORDERED: ACETAMINOPHEN 325 MG TAB PO PRN (13:45)
[2024-06-13] MEDS ORDERED: DEXTROSE (50%) 50ML SYRG IV PRN (13:45)
[2024-06-13] MEDS ORDERED: DOCUSATE SOD 100 MG CAP PO PRN (13:45)
[2024-06-13] MEDS: SODIUM CHLOR 0.9% PF (SALINE LOCK) 10ML VIAL/SYR IV SCH (14:19)
[2024-06-13] MEDS: HYDROmorphone HCL 2 MG/ML VL/or syr IV PRN (14:56)
[2024-06-13] MEDS: ONDANSETRON HCL 4 MG/2 ML VIAL IV PRN (14:56)
[2024-06-13] MEDS: INSULIN LANTUS (GLARGINE) 1 /0.01ml (100units/ml) SC SCH (15:18)
[2024-06-13] MEDS: ACCU-CHEK COMFORT CURVE STRIP VI SCH (17:10)
[2024-06-13] MEDS: InsuLIN REG 1unit/0.01ml Soln (100units/ml) SC SCH (17:14)
[2024-06-13] MEDS: hydrALAZINE HCL 25 MG TAB PO SCH (18:24)
[2024-06-13 20:00] VITALS: PULSE 97; RESP 18; O2SAT 98
[2024-06-13] MEDS: DORZOLAM-TIMOLOL(2/0.5%) OPTH(EYE) SOLN 10ML OP SCH (22:00)
[2024-06-13] MEDS: SACUBITRIL-VALSARTAN 24mg/26mg TAB PO SCH (22:15)
[2024-06-13] MEDS: CARVEDILOL 3.125 MG TAB PO SCH (22:15)
[2024-06-13 23:00] VITALS: BP 154/91; PULSE 97; RESP 20; TEMP 98.3; O2SAT 98
[2024-06-13 23:09] VITALS: PULSE 97; RESP 18; O2SAT 98
[2024-06-13] MEDS: acetaZOLAMIDE 250 MG TAB PO SCH (23:32)
[2024-06-14 05:00] VITALS: BP 130/89; PULSE 91; RESP 20; TEMP 98.1; O2SAT 99
[2024-06-14 08:26] VITALS: BP 112/61; PULSE 75; RESP 20; TEMP 98.2; O2SAT 98
[2024-06-14] MEDS: FUROSEMIDE 40 MG TAB PO SCH (10:00)
[2024-06-14] MEDS: PANTOPRAZOLE 40 MG/10 ML VIAL INJ IV SCH (11:05)
[2024-06-14] MEDS: ENOXAPARIN SOD 40 MG/0.4 ML SYRINGE SC SCH (11:05)
[2024-06-14] MEDS: cefTRIAXone 1GM/50ML D5W 50 ML IV SCH (11:05)
[2024-06-14] MEDS: ATORVASTATIN 20 MG TAB PO SCH (11:07)
[2024-06-14] MEDS: SPIRONOLACTONE 25 MG TAB PO SCH (11:07)
[2024-06-14] MEDS: CLOPIDOGREL BISULFATE 75 MG TAB PO SCH (11:07)
[2024-06-14] MEDS: DOXAZOSIN MESYL 2 MG TAB PO SCH (11:07)
[2024-06-14] MEDS: ASPirin 81 mg TAB PO SCH (11:08)
[2024-06-14 13:00] VITALS: BP 100/67; PULSE 75; RESP 20; TEMP 97.7; O2SAT 94
[2024-06-14 17:23] VITALS: BP 106/62; PULSE 75; RESP 20; TEMP 98.6; O2SAT 92
[2024-06-14 18:09] LABS: Basophils # (auto) 0.1 10 ^3/uL (0-0.2); Basophils % (auto) 1.3 % (0.0-2.0); Eosinophils # (auto) 0.3 10 ^3/uL (0-0.8); Eosinophils % (auto) 5.2 % (0.0-7.0); Hematocrit 35.2 % (41.0-53.0); Hemoglobin 11.7 g/dL (13.5-17.5); Lymphocytes # (auto) 1.5 10 ^3/uL (0.4-5.4); Mean Corpuscular Hemoglobin 27.6 pg (28.0-32.0); Mean Corpuscular Hgb Conc. 33.3 g/dL (32.0-36.0); Mean Corpuscular Volume 82.8 fL (80.0-100.0); Monocytes # (auto) 0.5 10 ^3/uL (0-1.3); Monocytes % (auto) 7.9 % (0.0-12.0); Neutrophils # (auto) 3.7 10 ^3/uL (1.6-8.6); Neutrophils % (auto) 61.6 % (37.0-80.0); Nucleated Red Blood Cells % 0.1 %; Platelet Count (auto) 204 10^3/uL (140-450); Red Blood Cells 4.25 10^6/uL (4.5-5.90); Red Cell Distribution Width 16.4 % (11.8-14.3)
[2024-06-14 18:29] LABS: Alanine Aminotransferase 13 U/L (7-40); Albumin 3.7 g/dL (3.2-4.8); Alkaline Phosphatase 120 U/L (46-116); Anion Gap 4 (5-15); Aspartate Aminotransferase 14 U/L (13-40); BUN/Creatinine Ratio 12.9 (10.0-20.0); Blood Urea Nitrogen 18 mg/dL (9-23); Calcium 9.2 mg/dL (8.7-10.4); Carbon Dioxide 25 mmol/L (20-31); Chloride 110 mmol/L (98-107); Glucose 115 mg/dL (74-106); Potassium 4.5 mmol/L (3.5-5.1); Sodium 139 mmol/L (136-145)
[2024-06-14 18:30] LABS: Bilirubin, Total 0.4 mg/dL (0.2-1.0)
[2024-06-14 20:00] VITALS: PULSE 76; RESP 16
[2024-06-14 21:00] VITALS: BP 118/59; PULSE 76; RESP 18; TEMP 98.4; O2SAT 99
[2024-06-15] VITALS (10 sets, daily range): BP systolic 103–122; BP diastolic 56–76; PULSE 62–80; RESP 16–18; TEMP 97.6–98.4; O2SAT 96–99
[2024-06-15 07:20] LABS: Basophils # (auto) 0.1 10 ^3/uL (0-0.2); Basophils % (auto) 1.1 % (0.0-2.0); Eosinophils # (auto) 0.4 10 ^3/uL (0-0.8); Eosinophils % (auto) 6.6 % (0.0-7.0); Hematocrit 34.9 % (41.0-53.0); Hemoglobin 11.9 g/dL (13.5-17.5); Lymphocytes # (auto) 1.7 10 ^3/uL (0.4-5.4); Lymphocytes % (auto) 28.7 % (10.0-50.0); Mean Corpuscular Hemoglobin 28.2 pg (28.0-32.0); Mean Corpuscular Hgb Conc. 34.2 g/dL (32.0-36.0); Mean Corpuscular Volume 82.3 fL (80.0-100.0); Monocytes # (auto) 0.5 10 ^3/uL (0-1.3); Monocytes % (auto) 8.1 % (0.0-12.0); Neutrophils # (auto) 3.3 10 ^3/uL (1.6-8.6); Neutrophils % (auto) 55.5 % (37.0-80.0); Platelet Count (auto) 188 10^3/uL (140-450); Red Blood Cells 4.24 10^6/uL (4.5-5.90)
[2024-06-15 07:37] LABS: Alanine Aminotransferase 13 U/L (7-40); Alkaline Phosphatase 97 U/L (46-116); Anion Gap 5 (5-15); BUN/Creatinine Ratio 10.7 (10.0-20.0); Blood Urea Nitrogen 16 mg/dL (9-23); Calcium 9.5 mg/dL (8.7-10.4); Carbon Dioxide 24 mmol/L (20-31); Chloride 110 mmol/L (98-107); Glucose 101 mg/dL (74-106); Potassium 4.4 mmol/L (3.5-5.1); Sodium 139 mmol/L (136-145)
[2024-06-15 07:38] LABS: Albumin 3.8 g/dL (3.2-4.8); Aspartate Aminotransferase 12 U/L (13-40); Bilirubin, Total 0.8 mg/dL (0.2-1.0)
[2024-06-16] VITALS (7 sets, daily range): BP systolic 118–147; BP diastolic 63–78; PULSE 71–83; RESP 16–19; TEMP 98–98.8; O2SAT 94–97
[2024-06-16 07:18] LABS: Basophils # (auto) 0.1 10 ^3/uL (0-0.2); Basophils % (auto) 1.8 % (0.0-2.0); Eosinophils # (auto) 0.4 10 ^3/uL (0-0.8); Eosinophils % (auto) 5.8 % (0.0-7.0); Hemoglobin 11.5 g/dL (13.5-17.5); Lymphocytes # (auto) 1.8 10 ^3/uL (0.4-5.4); Lymphocytes % (auto) 28.6 % (10.0-50.0); Mean Corpuscular Hemoglobin 27.4 pg (28.0-32.0); Mean Corpuscular Hgb Conc. 32.9 g/dL (32.0-36.0); Mean Corpuscular Volume 83.4 fL (80.0-100.0); Monocytes # (auto) 0.4 10 ^3/uL (0-1.3); Monocytes % (auto) 6.5 % (0.0-12.0); Neutrophils # (auto) 3.5 10 ^3/uL (1.6-8.6); Neutrophils % (auto) 57.3 % (37.0-80.0); Nucleated Red Blood Cells % 0.1 %; Platelet Count (auto) 205 10^3/uL (140-450); Red Cell Distribution Width 16.1 % (11.8-14.3); White Blood Cell 6.1 10^3/uL (4.4-10.8)
[2024-06-16 07:32] LABS: Alanine Aminotransferase 10 U/L (7-40); Albumin 3.6 g/dL (3.2-4.8); Alkaline Phosphatase 123 U/L (46-116); Anion Gap 7 (5-15); Aspartate Aminotransferase 14 U/L (13-40); BUN/Creatinine Ratio 11.4 (10.0-20.0); Blood Urea Nitrogen 17 mg/dL (9-23); Calcium 9.3 mg/dL (8.7-10.4); Carbon Dioxide 21 mmol/L (20-31); Chloride 110 mmol/L (98-107); Glucose 154 mg/dL (74-106); Sodium 138 mmol/L (136-145)
[2024-06-16 07:33] LABS: Bilirubin, Total 0.4 mg/dL (0.2-1.0); Total Protein 6.7 g/dL (5.7-8.2)
[2024-06-17 01:00] VITALS: BP 132/82; PULSE 82; RESP 19; TEMP 98.8; O2SAT 98
[2024-06-17 05:00] VITALS: BP 133/78; PULSE 75; RESP 19; TEMP 98.1; O2SAT 98
[2024-06-17 07:29] LABS: Basophils # (auto) 0.1 10 ^3/uL (0-0.2); Basophils % (auto) 1.8 % (0.0-2.0); Eosinophils # (auto) 0.3 10 ^3/uL (0-0.8); Eosinophils % (auto) 5.6 % (0.0-7.0); Hematocrit 35.2 % (41.0-53.0); Hemoglobin 11.9 g/dL (13.5-17.5); Lymphocytes # (auto) 1.6 10 ^3/uL (0.4-5.4); Lymphocytes % (auto) 26.4 % (10.0-50.0); Mean Corpuscular Hemoglobin 28.1 pg (28.0-32.0); Mean Corpuscular Hgb Conc. 33.9 g/dL (32.0-36.0); Mean Corpuscular Volume 82.9 fL (80.0-100.0); Monocytes # (auto) 0.5 10 ^3/uL (0-1.3); Monocytes % (auto) 7.6 % (0.0-12.0); Neutrophils # (auto) 3.6 10 ^3/uL (1.6-8.6); Neutrophils % (auto) 58.6 % (37.0-80.0); Platelet Count (auto) 203 10^3/uL (140-450); Red Blood Cells 4.25 10^6/uL (4.5-5.90); Red Cell Distribution Width 16.2 % (11.8-14.3); White Blood Cell 6.1 10^3/uL (4.4-10.8)
[2024-06-17 07:42] LABS: Alanine Aminotransferase 12 U/L (7-40); Albumin 3.7 g/dL (3.2-4.8); Alkaline Phosphatase 107 U/L (46-116); Anion Gap 7 (5-15); Aspartate Aminotransferase 10 U/L (13-40); Blood Urea Nitrogen 18 mg/dL (9-23); Calcium 9.8 mg/dL (8.7-10.4); Carbon Dioxide 21 mmol/L (20-31); Chloride 111 mmol/L (98-107); Glucose 119 mg/dL (74-106); Potassium 4.1 mmol/L (3.5-5.1); Sodium 139 mmol/L (136-145)
[2024-06-17 07:43] LABS: Bilirubin, Total 0.4 mg/dL (0.2-1.0); Total Protein 6.9 g/dL (5.7-8.2)
[2024-06-17 08:00] VITALS: PULSE 82; RESP 18; O2SAT 98
[2024-06-17] MEDS ORDERED: CEFP200T15 PO (08:39)
[2024-06-17 09:10] VITALS: BP 122/78; PULSE 82; RESP 18; TEMP 98.1; O2SAT 98
[2024-06-17 13:00] VITALS: BP 123/74; PULSE 67; RESP 18; TEMP 98.7; TEMP 99; O2SAT 100
[2024-06-17 15:50] VITALS: BP 123/74; PULSE 75; TEMP 36.7
== END 2024-06-17 16:50 | disposition home or self-care (01) | DRG 698 ==
LOC: ER 17:28 → EDBD 17:28 → OVERFLOW 06-13 13:38 → WEST WING 06-13 22:53
PROVIDERS: ADMIT Internal Medicine; ATTEND Student in an Organized Health Care Education/Training Program
DX: T83.021A Displacement of indwelling urethral catheter, initial encounter (principal); R53.2 Functional quadriplegia; F17.210 Nicotine dependence, cigarettes, uncomplicated; Y83.8 Other surgical procedures as the cause of abnormal reaction of the patient, or of later complication, without mention of misadventure at the time of the procedure; E11.9 Type 2 diabetes mellitus without complications; I10 Essential (primary) hypertension; Z86.73 Personal history of transient ischemic attack (TIA), and cerebral infarction without residual deficits; Z74.01 Bed confinement status; Z79.4 Long term (current) use of insulin; Z79.899 Other long term (current) drug therapy; Z90.49 Acquired absence of other specified parts of digestive tract; Z95.0 Presence of cardiac pacemaker; Z83.3 Family history of diabetes mellitus; Y92.89 Other specified places as the place of occurrence of the external cause
CPT/HCPCS: 36415; 74176; 80053; 81001; 82962; 83605; 85025; 87081; 87086; 97110; 97116; 97163; 97530; G0378; J1815; J2405; J2470; J2543